=== PATIENT | female | born 2000 | race Caucasian/White ===

== ENCOUNTER 2023-07-28 04:30 | Outpatient (CLI) | payer OTHER, SELFPAY ==
[2023-07-28 13:33] LABS: Bilirubin Negative (Negative); Blood Negative (Negative); Clarity Clear (Clear); Glucose Negative (Negative); Ketones Negative (Negative); Leukocyte Esterase Negative (Negative); Nitrite Negative (Negative); Urobilinogen 0.2 mg/dL (Up to 0.2)
[2023-07-28 14:12] LABS: ALT 28 U/L (14-59); AST 19 U/L (15-37); Albumin 3.9 g/dL (3.4-5.0); Alkaline Phosphatase 134 U/L (46-116); Anion Gap 9.7 mmol/L (3-11); BUN 10 mg/dL (7-18); Bilirubin, Total 0.4 mg/dL (0.2-1.0); CO2 25.3 mmol/L (21.0-32.0); CREATININE 0.8 mg/dL (0.55-1.02); Calcium 9.6 mg/dL (8.5-10.1); Calculated LDL 179 mg/dL (<100); Chloride 101 mmol/L (98-107); Cholesterol 249 mg/dL (<200); Estimated GFR 105.45 (mL/min/1.73m2); Glucose 94 mg/dL (74-106); HDL Cholesterol 47 mg/dL (40-60); Potassium 3.4 mmol/L (3.5-5.1); Sodium 136 mmol/L (136-145); TSH (W/Ref FT4) 2.12 uIU/mL (0.36-3.74); Total Protein 7.9 g/dL (6.4-8.2); Triglyceride 116 mg/dL (<150)
== END 2023-07-28 04:31 | disposition home or self-care (01) ==
LOC: LBO 04:30
PROVIDERS: PCP Nurse Practitioner Family; Visit Provider Nurse Practitioner Family
DX: Z76.89 Persons encountering health services in other specified circumstances (principal); R35.0 Frequency of micturition
CPT/HCPCS: 36415; 80053; 80061; 81003; 83036; 84443

== ENCOUNTER 2023-09-19 21:50 | Outpatient (REF) | payer OTHER, SELFPAY ==
--- OUTSIDE RECORDS SUMMARY | 2023-09-19 21:54 | XMS_ITS | Continuity of Care Document ---
Author Name Unknown Organization [facility] Address [address] [place] [id number] Care Team Providers Care Manager Culinary Name Role Phone Evelio Ford DO Primary Care Physician Encounter [facility] NBR [id number] Date(s): 03/19/23 - 03/19/[address] [address]- Encounter Diagnosis Other chronic pain(Discharge Diagnosis) - 03/19/23 Pelvic and perineal pain(Final) - Discharge Disposition: Home or Self Care Attending Physician: Ivet Elkins PA-C Admitting Physician: Ivet Elkins PA-C Allergies, Adverse Reactions, Alerts No Known Medication Allergies Assessment and Plan Future Scheduled Tests Radiology* US Pelvic Ltd 08/08/22 Immunizations Given and Recorded Vaccine Date Status Refusal Reason influenza virus vaccine, inactivated 08/22/22 Give n SARS-CoV-2 (COVID-19) mRNA BNT-162b2 vax 06/18/22 Recorded SARS-CoV-2 (COVID-19) mRNA BNT-162b2 vax 1 06/18/22 Recorded 1Result Comment: 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 Medications !-Lybrel 0 Refill(s) Start Date: 08/16/22 Status: Ordered buPROPion 150 mg/24 hours (XL) oral tablet, extended release 150 mg 1 tab, Oral, every 24 hr, # 30 tab, 11 Refill(s), Pharmacy: [facility] Start Date: 08/22/22 Status: Ordered doxycycline hyclate 100 mg oral capsule 100 mg = 1 cap, Oral, BID, # 14 cap, 0 Refill(s) Start Date: 01/29/23 Stop Date: 02/05/23 Status: Ordered ketorolac 10 mg oral tablet 10 mg = 1 tab, Oral, QID, PRN as needed for pain, not to exceed 40 mg/day and 5 days duration for all dose forms, # 20 tab, 0 Refill(s), Pharmacy: [facility] Start Date: 03/19/23 Status: Ordered levonorgestrel-ethinyl estradiol oral tablet 1 tab, Oral, Daily, # 91 tab, 3 Refill(s), Pharmacy: [facility] Start Date: 11/15/22 Stop Date: 11/14/23 Status: Ordered Lo-Zumandimine 3 mg-0.02 mg oral tablet 0 Refill(s) Start Date: 01/29/23 Status: Ordered multivitamin adult, oral tablet 1 tab, Oral, Daily, # 90 tab, 0 Refill(s) Start Date: 08/16/22 Status: Ordered sertraline 100 mg oral tablet 100 mg = 1 tab, Oral, Daily, # 90 tab, 2 Refill(s), Pharmacy: [facility] Start Date: 10/10/22 Status: Ordered sertraline 25 mg oral tablet 1 Unknown, 0 Refill(s) Start Date: 08/16/22 Status: Ordered Vitamin D3 1000 intl units oral capsule 25 mcg = 1 cap, Oral, Daily, # 100 cap, 0 Refill(s) Start Date: 08/16/22 Status: Ordered Problem List Condition Confirmation Course Effective Dates Status H ealth Status Informant Allergic rhinitis Confirmed Active Anxiety Confirmed Active Attention deficit hyperactivity disorder Confirmed Active Dysmenorrhea Confirmed Active Furuncles Confirmed Active History of lump of right breast Confirmed Active History of major depression Confirmed Active History of recurrent ear infection 1 Confirmed Active History of pyelonephritis Confirmed Active Hidradenitis suppurativa Confirmed Active History of UTI Confirmed Active Intermenstrual bleeding - irregular Confirmed Active Dyspareunia in female Confirmed Active Pelvic pain in female 2 Confirmed Active Patient encounter status Confirmed Active RLQ abdominal pain Confirmed Active 1As a child. 2more prominent on right. Procedures Procedure Date Related Diagnosis Body Site Status Tympanostomy Completed Results Laboratory List Name Date Automated Diff 03/19/23 Basic Metabolic Panel 03/19/23 CBC w/ Diff 03/19/23 Urinalysis Dipstick Only 03/19/23 Most recent to oldest [Reference Range]: 1 WBC [4.8-10.8 K/mcL] 9.9 K/mcL (03/19/23 3:14 PM) RBC [4.20-5.40 Million/mcL] 4.92 Million /mcL (03/19/23 3:14 PM) Neutro Auto [42.2-75.2 %] 67.2 % (03/19/23 3:14 PM) Lymph Auto [20.5-51.1 %] 25.1 % (03/19/23 3:14 PM) Dewey Auto [1.7-9.3 %] 5.5 % (03/19/23 3:14 PM) Basophil Auto [0.0-0.8 %] 0.5 % (03/19/23 3:14 PM) BUN [8-26 mg/dL] 9 mg/dL (03/19/23 3:14 PM) UA Color [Yellow] Yellow (03/19/23 3:14 PM) Glucose Level [74-106 mg/dL] 89 mg/dL (03/19/23 3:14 PM) Potassium Level [3.5-5.1 mmol/L] 3.6 mmo l/L (03/19/23 3:14 PM) Baso Absolute [0.0-0.2 K/mcL] 0.0 K/mcL (03/19/23 3:14 PM) MCV [81.0-99.0 fL] 86.2 fL (03/19/23 3:14 PM) UA Urobilinogen [0.2] 0.2 (03/19/23 3:14 PM) UA Bili [Negative] Negative (03/19/23 3:14 PM) UA Ketones [Negative] Negative (03/19/23 3:14 PM) MCHC [32.0-36.0 g/dL] 32.8 g/dL (03/19/23 3:14 PM) Osmolality [275-295 mOsm/kg] 278 mOsm/kg (03/19/23 3:14 PM) Sodium Level [134-143 mmol/L] 140 mmol/L (03/19/23 3:14 PM) UA Leuk Est [Negative] Negative (03/19/23 3:14 PM) Lymph Absolute [1.2-3.4 K/mcL] 2.5 K/mcL (03/19/23 3:14 PM) UA Nitrite [Negative] Negative (03/19/23 3:14 PM) UA Glucose [Negative] Negative (03/19/23 3:14 PM) Hct [37.0-47.0 %] 42.4 % (03/19/23 3:14 PM) Calcium Level [8.9-10.3 mg/dL] 9.8 mg/dL (03/19/23 3:14 PM) Dewey Absolute [0.1-0.6 K/mcL] 0.5 K/mcL (03/19/23 3:14 PM) UA Protein [Negative] Negative (03/19/23 3:14 PM) MCH [27.0-31.0 pg] 28.3 pg (03/19/23 3:14 PM) Neutro Absolute [1.4-6.5 K/mcL] 6.7 K/mc L *HI* (03/19/23 3:14 PM) Hgb [12.0-16.0 g/dL] 13.9 g/dL (03/19/23 3:14 PM) UA Blood [Negative] Negative (03/19/23 3:14 PM) MPV [7.4-10.4 fL] 8.6 fL (03/19/23 3:14 PM) UA Spec Grav 1.010 *NA* (03/19/23 3:14 PM) Platelets [130-400 K/mcL] 367 K/mcL (03/19/23 3:14 PM) CO2 [22-32 mmol/L] 28 mmol/L (03/19/23 3:14 PM) Eos Absolute [0.0-0.2 K/mcL] 0.1 K/mcL (03/19/23 3:14 PM) UA pH 5.50 *NA* (03/19/23 3:14 PM) UA Appear [Clear] Clear (03/19/23 3:14 PM) Chloride Level [98-111 mmol/L] 102 mmol/ L (03/19/23 3:14 PM) RDW-CV [11.5-14.5 %] 12.7 % (03/19/23 3:14 PM) BUN/Creat Ratio [8.0-20.0] 12.3 (03/19/23 3:14 PM) Imm Gran Absolute 0.06 *NA* (03/19/23 3:14 PM) Imm Gran Auto [0.0-0.5 %] 0.6 % *HI* (03/19/23 3:14 PM) Slide Review Not Indicated (03/19/23 3:14 PM) Urine Srce Clean Catch (03/19/23 3:14 PM) Creatinine Level [0.44-1.00 mg/dL] 0.73 mg/dL (03/19/23 3:14 PM) Anion Gap [3.0-12.0] 10.0 (03/19/23 3:14 PM) Eos, Auto [0.00-3.00 %] 1.10 % (03/19/23 3:14 PM) eGFR CKD-EPI [>=60 mL/min/1.73 m2] 118 m L/min/1.73 m2 (03/19/23 3:14 PM) Social History Social History Type Response Tobacco Former tobacco user Tobacco Use:. Sex Patient Care team information Care Team Personnel Name: Evelio Ford DO Position: Physician Member Role: Primary Care Physician Address: Address: [address] [place] [id number] [place] Care Team Related Persons Name: MINDY VÁSQUEZ Address: Home [address] [facility] [place], [place] [id number]
--- OUTSIDE RECORDS SUMMARY | 2023-09-19 21:54 | XMS_ITS | Continuity of Care Document ---
Author Name Unknown Organization [facility] Address [address] [place] [phone] Care Team Providers Care Terrazzo Helper Name Role Phone Kiesha Muñoz MD Primary Care Physician Encounter [facility] NBR [id number] Date(s): 08/08/22 - 08/08/[address] [address] [place] Discharge Disposition: Home or Self Care Attending Physician: Moo Patel Admitting Physician: Moo Patel Referring Physician: Moo Patel Assessment and Plan Future Appointments Future Scheduled Tests Radiology* US Pelvic Ltd 08/08/22 Results Radiology Reports * Exam Date Time Procedure Performing Provider Status 08/08/22 1:59 PM US Pelvic Complete Saqib Flores (Verified) Notes: (US Pelvic Complete) Reason For Exam: r10.2 US Pelvic Complete PROCEDURE INFORMATION: Exam: US Pelvis Complete, Transabdominal and US Pelvis, Transvaginal Exam date and time: 08/08/2022 1:10 PM Age: 21 years old Clinical indication: Pelvic pain; Additional info: R10.2 TECHNIQUE: Imaging protocol: Real-time complete transabdominal and transvaginal pelvic ultrasound with image documentation. Transvaginal imaging was used for better evaluation of the endometrium, adnexa, and/or cervix. COMPARISON: No relevant prior studies available. FINDINGS: Uterus: Uterus measures 5.3 x 2.1 x 3.4 cm, and is within normal limits in appearance. Endometrial stripe is normal in thickness, measuring 3.6 mm. Right ovary/adnexa: Right ovary measures 2.9 x 1.2 x 1.4 cm, and is within normal limits in appearance. Flow seen in the right ovary on color imaging, with no evidence of torsion. Left ovary/adnexa: Left ovary measures 2.0 x 1.7 x 1.7 cm, and is within normal limits in appearance. Flow seen in the left ovary on color imaging, with no evidence of torsion. Intraperitoneal space: No free fluid. Urinary bladder: Within normal limits in appearance. IMPRESSION: 1. No significant abnormality of the uterus or ovaries identified. 2. See above for a full description of findings. THIS DOCUMENT HAS BEEN ELECTRONICALLY SIGNED BY BOB PAT MD on 08/08/2022 05:47 PM Final Signed by: Bob Pat MD Signed (Electronic Signature): 08/08/2022 5:47 pm US Pelvis * Bob Pat MD: VERIFY, VERIFY Event Display: Report PROCEDURE INFORMATION: Exam: US Pelvis Complete, Transabdominal and US Pelvis, Transvaginal Exam date and time: 08/08/2022 1:10 PM Age: 21 years old Clinical indication: Pelvic pain; Additional info: R10.2 TECHNIQUE: Imaging protocol: Real-time complete transabdominal and transvaginal pelvic ultrasound with image documentation. Transvaginal imaging was used for better evaluation of the endometrium, adnexa, and/or cervix. COMPARISON: No relevant prior studies available. FINDINGS: Uterus: Uterus measures 5.3 x 2.1 x 3.4 cm, and is within normal limits in appearance. Endometrial stripe is normal in thickness, measuring 3.6 mm. Right ovary/adnexa: Right ovary measures 2.9 x 1.2 x 1.4 cm, and is within normal limits in appearance. Flow seen in the right ovary on color imaging, with no evidence of torsion. Left ovary/adnexa: Left ovary measures 2.0 x 1.7 x 1.7 cm, and is within normal limits in appearance. Flow seen in the left ovary on color imaging, with no evidence of torsion. Intraperitoneal space: No free fluid. Urinary bladder: Within normal limits in appearance. IMPRESSION: 1. No significant abnormality of the uterus or ovaries identified. 2. See above for a full description of findings. THIS DOCUMENT HAS BEEN ELECTRONICALLY SIGNED BY BOB PAT MD on 08/08/2022 05:47 PM Final Signed by: Bob Pat MD Signed (Electronic Signature): 08/08/2022 5:47 pm Patient Care team information Personnel Name: Kiesha Muñoz MD Address: Address: [address] [place] [id number]
--- OUTSIDE RECORDS SUMMARY | 2023-09-19 21:54 | XMS_ITS | Continuity of Care Document ---
Author Name Unknown Organization [facility] Ambulatory Clinics Address [address] [place] [address] Care Team Providers Care Library Associate Name Role Phone Kiesha Muñoz MD Primary Care Physician Encounter [facility] NBR [id number] Date(s): 01/29/23 - 01/29/23 [facility] Ambulatory Clin[facility] [address] [place], [place] [id number] Encounter Diagnosis Respiratory illness(Discharge Diagnosis) - 01/29/23 Discharge Disposition: Home or Self Care Attending Physician: Ben Carrillo. 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 !-Lybrel 0 Refill(s) Start Date: 08/16/22 Status: Ordered buPROPion 150 mg/24 hours (XL) oral tablet, extended release 150 mg 1 tab, Oral, every 24 hr, # 30 tab, 11 Refill(s), Pharmacy: [facility] Start Date: 08/22/22 Status: Ordered doxycycline hyclate 100 mg oral capsule 100 mg = 1 cap, Oral, BID, # 14 cap, 0 Refill(s) Start Date: 01/29/23 Stop Date: 02/05/23 Status: Ordered levonorgestrel-ethinyl estradiol oral tablet 1 tab, Oral, Daily, # 91 tab, 3 Refill(s), Pharmacy: [facility] Start Date: 11/15/22 Stop Date: 11/14/23 Status: Ordered Lo-Zumandimine 3 mg-0.02 mg oral tablet 0 Refill(s) Start Date: 01/29/23 Status: Ordered multivitamin adult, oral tablet 1 tab, Oral, Daily, # 90 tab, 0 Refill(s) Start Date: 08/16/22 Status: Ordered sertraline 100 mg oral tablet 100 mg = 1 tab, Oral, Daily, # 90 tab, 2 Refill(s), Pharmacy: [facility] Start Date: 10/10/22 Status: Ordered sertraline [...] Tympanostomy Completed Results Laboratory List Name Date SARS-CoV-2 (Covid-19) AG (Ayanna) POCT 01/29/23 Most recent to oldest [Reference Range]: 1 SARS-CoV or CoV-2 (COVID-19) Ag (Ayanna) [Negative] Negative (01/29/23 1:37 PM) Employed in healthcare? Unknown *NA* (01/29/23 1:37 PM) Symptomatic as defined by CDC? Unknown *NA* (01/29/23 1:37 PM) Date of onset (Lab) Unknown *NA* (01/29/23 1:37 PM) Hospitalized due to COVID-19? Unknown *NA* (01/29/23 1:37 PM) In ICU? Unknown *NA* (01/29/23 1:37 PM) Group care resident? Unknown *NA* (01/29/23 1:37 PM) status? Unknown *NA* (01/29/23 1:37 PM) Vital Signs Most recent to oldest [Reference Range]: 1 Peripheral Pulse Rate [60-100 bpm] 98 bp m (01/29/23 2:03 PM) Blood Pressure [90-140/60-90 mmHg] 142/8 1mmHg *HI* (01/29/23 2:03 PM) Weight 68.04 kg (01/29/23 2:03 PM) Weight Measured (lbs) 150.002 lb (01/29/23 2:03 PM) Height 158.75 cm (01/29/23 2:03 PM) Height/Length Measured (inches) 62.5 inc h (01/29/23 2:03 PM) BSA Measured 1.73 m2 (01/29/23 2:03 PM) Body Mass Index 27 kg/m2 (01/29/23 2:03 PM) Social History Social History Type Response Tobacco Former tobacco user Tobacco Use:. Sex Physician Outpatient Note * Ben Carrillo. PA: PERFORM Event Display: Office Clinic Note Physician Authored Date: [id number] CHAUDHRYJAMA :2000 Age:22 years Sex:Female Visit Date:01/29/2023 Primary Care Physician: Kiesha Muñoz MD Chief Complaint pt reports cough, sore throat, chest pain, body aches, fatigue symptoms started friday History of Present Illness Patient started 2 days ago with sore throat now with body aches??cough congestion??hoarse voice. ??No runny nose. ??Has felt chilled. ??No fever. ??Tmax 99. ??Significant other recently diagnosed with pneumonia.?? No known COVID contacts.?? No??nausea, vomiting, diarrhea.?? Has felt more fatigued la tely. ??No hemoptysis.?? Denies any abdominal pain.?? Chest tightness with coughing. Physical Exam Vitals & Measurements HR:??98??(Peripheral)?? BP:??142/81?? SpO2:??100%?? HT:??158.75??cm?? WT:??68.04??kg?? BMI:??27?? Pain Score:??4?? BSA:??1.73?? General: Alert and oriented, well nourished, no acute distress. Eye:??Pupils are reactive, conjunctiva clear. HENT: Normocephalic, clear tympanic membranes, throat clear no exudate and uvula is midline Neck: Supple, non-tender, no lymphadenopathy Lungs: Clear to auscultation and percussion, non-labored respiration. Heart: Normal rate, regular rhythm, no murmur, gallop or edema. Abdomen: Soft, non-tender, non-distended, no masses, no CVA tenderness. Musculoskeletal: Normal range of motion and strength, no tenderness or swelling. Skin: Skin is warm, dry, no rashes or lesions in examined areas. Neurologic: Awake, alert and oriented X3, normal cognition and interaction. Psychiatric: Cooperative, appropriate mood and affect. Assessment/Plan 1.??Respiratory illness??J98.9 Rapid flu was negative. ??Given her exposure to pneumonia.?? I reviewed treatment options includingstarting antibiotics, chest x-ray, delay prescribing. ??At this time due to cost she would like to avoid chest x-ray, she will do delay prescribing. ??If improving tomorrow or the next day we will hold off on antibiotics otherwise could start antibiotics if worse or not improving. ??The patient wasagreeable with this.?? Shared decision making done. ??She is aware of the risk benefits and alternatives. Ordered: doxycycline hyclate 100 mg oral capsule, 100 mg = 1 cap, Oral, BID, # 14 cap, 0 Refill(s) Influenza A/B Clinic POC (RE), 01/29/23 14:48:00 EDT, Respiratory illness, 01/29/23 14:48:00 EDT ?? Patient Instructions Start antibiotic in the next 1 to 2 days if you are worsening. ??Otherwise if you are improving continue symptomatic care.?? Emergency department for any shortness of breath or difficulty breathing. ??Follow-up as needed. Problem List/Past Medical History Ongoing Allergic rhinitis Anxiety Attention deficit hyperactivity disorder Dysmenorrhea Dyspareunia in female Furuncles Hidradenitis suppurativa History of lump of right breast History of major depression History of pyelonephritis History of recurrent ear infection History of UTI Intermenstrual bleeding - irregular Patient encounter status Pelvic pain in female RLQ abdominal pain Historical No qualifying data Procedure/Surgical History ???Tympanostomy Medications !-Lybrel buPROPion 150 mg/24 hours (XL) oral tablet, extended release, 150 mg= 1 tab, Oral, every 24 hr, 11 refills doxycycline hyclate 100 mg oral capsule, 100 mg= 1 cap, Oral, BID levonorgestrel-ethinyl estradiol oral tablet, 1 tab, Oral, Daily, 3 refills Lo-Zumandimine 3 mg-0.02 mg oral tablet multivitamin adult, oral tablet, 1 tab, Oral, Daily sertraline 100 mg oral tablet, 100 mg= 1 tab, Oral, Daily, 2 refills sertraline 25 mg oral tablet Vitamin D3 1000 intl units oral capsule, 25 mcg= 1 cap, Oral, Daily Allergies No Known Medication Allergies Social History Alcohol Never Electronic Cigarette/Vaping Electronic Cigarette Use: Never. Tobacco Former tobacco user Tobacco Use:. Family History ADHD - Attention deficit disorder with hyperactivity: Sister. Anxiety: Mother. Cancer: Mother and Grandmother (M). Heart disease: Grandfather (M). Hypertension: Grandfather (M). Immunizations Vaccine Date Status influenza virus vaccine, inactivated - Not Given Comments : Expectation Not Necessary Duplicate order.. patient recieved flu vaccine today. 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 VIKTORIA: PERFORM Event Display: Ambulatory Patient Summary Authored Date: [id number] JAMA CHAUDHRY :2000 Age:22 years Sex:Female Visit Date:01/29/2023 Primary Care Physician: Kiesha Muñoz MD Ambulatory Visit Instructions We would like to thank you for allowing us to assist you with your healthcare needs. The following includes patient education materials and information regarding your injury/illness. Your Next Steps Instructions From Your Care Team Start antibiotic in the next 1 to 2 days if you are worsening. ??Otherwise if you are improving continue symptomatic care.?? Emergency department for any shortness of breath or difficulty breathing. ??Follow-up as needed. Medications What How Much When Why Instructions New doxycycline (doxycycline hyclate 100 mg oral capsule) 1 Capsules Oral (given by mouth) 2 times a day Respiratory illness Duration: 7 Days Printed Prescription Unchanged buPROPion (buPROPion 150 mg/ 24 hours (XL) oral tablet, extended release) 1 tab Oral (given by mouth) Every 24 hours Anxiety Attention deficit hyperactivity disorder Unchanged cholecalciferol (Vitamin D3 1000 intl units oral capsule) 1 Capsules Oral (given by mouth) Every day Unchanged drospirenone-ethinyl estradiol (Lo-Zumandimine 3 mg-0.02 mg oral tablet) Unchanged levonorgestrel-ethinyl estradiol (!-Lybrel) Unchanged levonorgestrel-ethinyl estradiol (levonorgestrel-ethinyl estradiol oral tablet) 1 tab Oral (given by mouth) Every day Duration: 91 Days Unchanged multivitamin (multivitamin adult, oral tablet) 1 tab Oral (given by mouth) Every day Unchanged sertraline (sertraline 100 mg oral tablet) 1 tab Oral (given by mouth) Every day Unchanged sertraline (sertraline 25 mg oral tablet) 1 Unknown ?? Your Summary Your Diagnosis Respiratory illness Problems Ongoing - Any problem that you are currently receiving treatment for. Allergic rhinitis Anxiety Attention deficit hyperactivity disorder Dysmenorrhea Dyspareunia in female Furuncles Hidradenitis suppurativa History of lump of right breast History of major depression History of pyelonephritis History of recurrent ear infection History of UTI Intermenstrual bleeding - irregular Patient encounter status Pelvic pain in female RLQ abdominal pain Outstanding Tests SARS-CoV-2 (Covid-19) AG (Ayanna) POCT Tests Performed Test Name Test Result Date/Time SARS-CoV or CoV-2 (COVID-19) Ag (Ayanna) Negative 01/29/2023 13:37 EDT Your Care Team Attending Physician - Ben Carrillo. PA Primary Care Physician - Kiesha Muñoz MD Discharge Vitals Heart Rate??(Peripheral) 98 Blood Pressure?? 142/81?? Height?? 62.50 in (158.75 cm) Weight?? 150.03 lb (68.04 kg) BMI?? 27 Allergies No Known Medication Allergies Electronically Signed on: 01/29/2023 14:50 EDTSigned by:BT Patient Care team information Care Team Personnel Name: Kiesha Muñoz MD Position: Physician Member Role: Primary Care Physician Address: Address: [address] [place] [phone] Care Team Related Persons Name: MINDY VÁSQUEZ Address: Home [address] [place] [phone]
--- OUTSIDE RECORDS SUMMARY | 2023-09-19 21:54 | XMS_ITS | Continuity of Care Document ---
Author Name Unknown Organization [facility] Address [address] [place] [address] Care Team Providers Care Fbi Field Agent Name Role Phone Unavailable, Physician Primary Care Physician Un available Encounter [facility] NBR [id number] Date(s): 04/09/23 - 04/09/[address] [id number] [phone] Encounter Diagnosis Encounter for other specified special examinations(Final) - Discharge Disposition: Home or Self Care Attending Physician: Unavailable, Physician Admitting Physician: Unavailable, Physician Allergies, Adverse Reactions, Alerts No Known Medication Allergies Assessment and Plan Future Scheduled Tests Radiology* US Pelvic Ltd 08/08/22 Immunizations Given and Recorded Vaccine Date Status Refusal Reason influenza virus vaccine, inactivated 08/22/22 Give n SARS-CoV-2 (COVID-19) mRNA BNT-162b2 vax 06/18/22 Recorded SARS-CoV-2 (COVID-19) mRNA BNT-162b2 vax 1 06/18/22 Recorded 1Result Comment: Unit: Unknown 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 Medications !-Lybrel 0 Refill(s) Start Date: 08/16/22 Status: Ordered buPROPion 150 mg/24 hours (XL) oral tablet, extended release 150 mg 1 tab, Oral, every 24 hr, # 30 tab, 11 Refill(s), Pharmacy: [facility] Start Date: 08/22/22 Status: Ordered [...] forms, # 20 tab, 0 Refill(s), Pharmacy: [facility] Start Date: 03/19/23 Status: Ordered levonorgestrel-ethinyl estradiol oral tablet 1 tab, Oral, Daily, # 91 tab, 3 Refill(s), Pharmacy: [facility] Start Date: 11/15/22 Stop Date: 11/14/23 Status: Ordered Lo-Zumandimine 3 mg-0.02 mg oral tablet 0 Refill(s) Start Date: 01/29/23 Status: Ordered multivitamin adult, oral tablet 1 tab, Oral, Daily, # 90 tab, 0 Refill(s) Start Date: 08/16/22 Status: Ordered sertraline 100 mg oral tablet 100 mg = 1 tab, Oral, Daily, # 90 tab, 2 Refill(s), Pharmacy: [facility] Start Date: 10/10/22 Status: Ordered [...] Tympanostomy Completed Results Laboratory List Name Date CBC w/ Diff 04/09/23 Automated Diff 04/09/23 Most recent to oldest [Reference Range]: 1 WBC [4.8-10.8 K/mcL] 9.8 K/mcL (04/09/23 12:18 PM) RBC [4.20-5.40 Million/mcL] 4.76 Million /mcL (04/09/23 12:18 PM) Neutro Auto [42.2-75.2 %] 67.7 % (6/14/23 12:18 PM) Lymph Auto [20.5-51.1 %] 24.9 % (04/09/23 12:18 PM) Gray Auto [1.7-9.3 %] 4.2 % (04/09/23 12:18 PM) Basophil Auto [0.0-0.8 %] 0.5 % (04/09/23 12:18 PM) Baso Absolute [0.0-0.2 K/mcL] 0.0 K/mcL (04/09/23 12:18 PM) MCV [81.0-99.0 fL] 86.8 fL (04/09/23:18 PM) MCHC [32.0-36.0 g/dL] 32.0 g/dL (04/09/23:18 PM) Lymph Absolute [1.2-3.4 K/mcL] 2.4 K/mcL (04/09/23 12:18 PM) Hct [37.0-47.0 %] 41.3 % (04/09/23 12:18 PM) Gray Absolute [0.1-0.6 K/mcL] 0.4 K/mcL (04/09/23 12:18 PM) MCH [27.0-31.0 pg] 27.7 pg (04/09/23:18 PM) Neutro Absolute [1.4-6.5 K/mcL] 6.7 K/mc L *HI* (04/09/23 12:18 PM) Hgb [12.0-16.0 g/dL] 13.2 g/dL (04/09/23 12:18 PM) MPV [7.4-10.4 fL] 8.6 fL (04/09/23 12:18 PM) Platelets [130-400 K/mcL] 380 K/mcL (04/09/23 12:18 PM) Eos Absolute [0.0-0.2 K/mcL] 0.2 K/mcL (04/09/23 12:18 PM) RDW-CV [11.5-14.5 %] 12.7 % (04/09/23 12:18 PM) Imm Gran Absolute 0.06 *NA* (04/09/23:18 PM) Imm Gran Auto [0.0-0.5 %] 0.6 % *HI* (04/09/23 12:18 PM) Slide Review Not Indicated (04/09/23 12:18 PM) Eos, Auto [0.00-3.00 %] 2.10 % (04/09/23 12:18 PM) Social History Social History Type Response Tobacco Former tobacco user Tobacco Use:. Sex Patient Care team information Care Team Personnel Name: Unavailable, Physician Position: No Access Member Role: Primary Care Physician Care Team Related Persons Name: MINDY VÁSQUEZ Address: Home [address] [place] [address] [place], [place] [id number]
--- OUTSIDE RECORDS SUMMARY | 2023-09-19 21:54 | XMS_ITS | Continuity of Care Document ---
Author Name Unknown Organization [facility] Address [address] [place] [address] Care Team Providers Care Scroll Saw Operator Name Role Phone Kiesha Muñoz MD Primary Care Physician [phone] Encounter [facility] NBR [id number] Date(s): 08/22/22 - 08/22/22 [facility] [address] [place], [place] [address] Encounter Diagnosis Attention deficit hyperactivity disorder(Discharge Diagnosis) - 08/22/22 Anxiety(Discharge Diagnosis) - 08/22/22 Need for vaccination(Discharge Diagnosis) - 08/22/22 Flu vaccine need(Discharge Diagnosis) - 08/22/22 Discharge Disposition: Home or Self Care Attending Physician: Kiesha Muñoz MD Allergies, Adverse Reactions, Alerts No Known Medication Allergies Assessment and Plan Future Appointments Future Scheduled Tests Radiology* US Pelvic Ltd 08/08/22 Functional Status 08/22/22 Other exposure to Infectious Disease Non e Immunizations Given and Recorded Vaccine Date Status Refusal Reason influenza virus vaccine, inactivated 08/22/22 Give n SARS-CoV-2 (COVID-19) mRNA BNT-162b2 vax 06/18/22 Recorded SARS-CoV-2 (COVID-19) mRNA BNT-162b2 vax 1 06/18/22 Recorded 1Result Comment: Unit: Unknown 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 Medications !-Lybrel 0 Refill(s) Start Date: 08/16/22 Status: Ordered buPROPion 150 mg/24 hours (XL) oral tablet, extended release 150 mg 1 tab, Oral, every 24 hr, # 30 tab, 11 Refill(s), Pharmacy: [facility] Start Date: 08/22/22 Status: Ordered multivitamin adult, oral tablet 1 tab, Oral, Daily, # 90 tab, 0 Refill(s) Start Date: 08/16/22 Status: Ordered sertraline 25 mg oral tablet 1 Unknown, 0 Refill(s) Start Date: 08/16/22 Status: Ordered sertraline 50 mg oral tablet 50 mg = 1 tab, Oral, Daily, # 90 tab, 4 Refill(s), Pharmacy: [facility] Start Date: 08/22/22 Status: Ordered Vitamin D3 1000 intl units [...] Related Diagnosis Body Site Status Tympanostomy Completed Vital Signs Most recent to oldest [Reference Range]: 1 Peripheral Pulse Rate [60-100 bpm] 97 bp m (08/22/22 12:36 PM) Blood Pressure [90-140/60-90 mmHg] 128/8 0mmHg (08/22/22 12:36 PM) Weight 64.6 kg (08/22/22 12:36 PM) Weight Measured (lbs) 142.418 lb (08/22/22 12:36 PM) [place] Body Weight Calculated 51.25 kg (08/22/22 12:36 PM) Height 158.75 cm (08/22/22 12:36 PM) Height/Length Measured (inches) 62.5 inc h (08/22/22 12:36 PM) BSA Measured 1.69 m2 (08/22/22 12:36 PM) Body Mass Index 25.63 kg/m2 (08/22/22 12:36 PM) Social History Social History Type Response Tobacco Former tobacco user Tobacco Use:. Sex Patient Care team information Personnel Name: Kiesha Muñoz MD Address: Address: [address] [place] [address]
--- OUTSIDE RECORDS SUMMARY | 2023-09-19 21:54 | XMS_ITS | Continuity of Care Document ---
Author Name Unknown Organization [facility] Address [address] [place] [address] Care Team Providers Care Spacer Type Bar And Segment Name Role Phone Evelio Ford DO Primary Care Physician [phone] Encounter [facility] NBR [id number] Date(s): 03/19/23 - 03/19/23 [facility] [address] [place] [address]- Encounter Diagnosis Chronic pelvic pain in female(Discharge Diagnosis) - 03/19/23 Other chronic pain(Discharge Diagnosis) - 03/19/23 Nausea(Discharge Diagnosis) - 03/19/23 Discharge Disposition: Home or Self Care Attending Physician: Ivet Elkins PA-C Allergies, Adverse Reactions, Alerts No Known Medication Allergies Assessment and Plan Future Scheduled Tests Radiology* US Pelvic Ltd 08/08/22 Functional Status 03/19/23 Other exposure to Infectious Disease Non e Immunizations Given and Recorded Vaccine Date Status Refusal Reason influenza virus vaccine, inactivated 08/22/22 Give n SARS-CoV-2 (COVID-19) mRNA BNT-162b2 vax 06/18/22 Recorded SARS-CoV-2 (COVID-19) mRNA BNT-162b2 vax 1 06/18/22 Recorded 1Result Comment: Unit: Unknown [employer] 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 Medications !-Lybrel 0 Refill(s) Start Date: 08/16/22 Status: Ordered buPROPion 150 mg/24 hours (XL) oral tablet, extended release 150 mg 1 tab, Oral, every 24 hr, # 30 tab, 11 Refill(s), Pharmacy: [facility] Start Date: 08/22/22 Status: [...] forms, # 20 tab, 0 Refill(s), Pharmacy: [facility] Start Date: 03/19/23 Status: Ordered levonorgestrel-ethinyl estradiol oral tablet 1 tab, Oral, Daily, # 91 tab, 3 Refill(s), Pharmacy: [facility] Start Date: 11/15/22 Stop Date: 11/14/23 Status: Ordered Lo-Zumandimine 3 mg-0.02 mg oral tablet 0 Refill(s) Start Date: 01/29/23 Status: Ordered multivitamin adult, oral tablet 1 tab, Oral, Daily, # 90 tab, 0 Refill(s) Start Date: 08/16/22 Status: Ordered sertraline 100 mg oral tablet 100 mg = 1 tab, Oral, Daily, # 90 tab, 2 Refill(s), Pharmacy: [facility] Start Date: 10/10/22 Status: [...] Most recent to oldest [Reference Range]: 1 Temperature Tympanic [36.6-37.9 Deg C] 3 7.1 Deg C (03/19/23 2:35 PM) Peripheral Pulse Rate [60-100 bpm] 114 b pm *HI* (03/19/23 2:35 PM) Respiratory Rate [12-24 br/min] 16 br/mi n (03/19/23 2:35 PM) Blood Pressure [90-140/60-90 mmHg] 144/8 8mmHg *HI* (03/19/23 2:35 PM) Social History Social History Type Response Tobacco Former tobacco user Tobacco Use:. Sex Physician Outpatient Note * Ivet Elkins PA-C: PERFORM Event Display: Office Clinic Note Physician Authored Date: [id number] JAMA CHAUDHRY :2000 Age:22 years Sex:Female Visit Date:03/19/2023 Primary Care Physician: Evelio Ford DO Chief Complaint pevlis pain and leg numbness as well as nausous. pt symptoms that she has today, started yesterday.pt has see court bailiff at [facility] and has been referred for surgery History of Present Illness Patient is a 22-year-old female??with several year history of chronic pelvic pain??that presents tothe urgent care office today??with several day history of increased pain in the anterior pelvis that has been radiating??down her legs with an associated ??cold sensation.?? No low back pain, numbness or tingling sensation??or weakness. ??No fever, perhaps she has had chills but attributed this due to the pain.?? She has had??daily nausea,??1 episode of vomiting this week. ??She is also been having intermittent??right-sided flank pain. ??No urinary symptoms, such as burning, frequency or urgency. ??No hematuria.?? She sees??[facility]??who recently discontinued her??oral contraceptive??and referred her to??another [facility] KNITTER surgeon, the appointment is in 2 days. ??Diagnosis is clinical endometriosis. ??She has had multiple transvaginal ultrasounds which have all been negative.?She has never been in the past. ??She has not been taking anything [id number] for symptom management.?? No prior abdominal pelvic surgeries. Physical Exam Vitals & Measurements T:??37.1?C ??(Tympanic)?? HR:??114??(Peripheral)?? RR:??16?? BP:??144/88?? SpO2:??100%?? Pain Score:??10?? She is well-appearing and in no acute distress, pleasant, reliable historian, accompanied by her??boyfriend.?? Ambulating normally. Nondiaphoretic. ??No skin rash. Heart rate elevated at 100. ??No audible murmurs. Lung sounds are clear in all lobes, no wheezing rales or rhonchi. Generalized tenderness of the??suprapubic region??and bilateral??lower abdomen??without any rigidity, rebound or guarding.?? No obvious ascites.?? Normal active bowel sounds.?? No CVA tenderness. Medical Decision Making: Pelvic pain: Acute exacerbation of her chronic pelvic pain, clinical diagnosis of endometriosis, appt in 2 days with [facility]TER surgical consult for laparoscopic exploratory surgery vs hysterectomy. UA normal. Negative hcG. CBC, BMP grossly normal without any??leukocytosis, electrolyte abnormality or??JOHN. ??She was given IM Toradol here in the office with a 5-day??oral course.?She may continue to use Tylenol 500 mg every 4 hours.?? She will follow-up with the??[facility] K[facility]TER??surgical consult??in 2 days for evaluation. ??She is agreeable with this plan.?? Return precautions provided. ??She declined discharge instructions. Assessment/Plan 1.??Chronic pelvic pain in female??R10.2 Ordered: ketorolac 10 mg oral tablet, 10 mg = 1 tab, Oral, QID, PRN as needed for pain, not to exceed 40 mg/day and 5 days duration for all dose forms, # 20 tab, 0 Refill(s), Pharmacy: [facility] HCG, Urine POC, 03/19/23 15:03:00 EDT, Chronic pelvic pain in female, 03/19/23 15:03:00 EDT ?? 2.??Nausea??R11.0 ?? Other chronic pain??G89.29 ?? Medications and Immunizations This Visit Given ketorolac, 30 mg, IM. For: Chronic pelvic pain in female Problem List/Past Medical History Ongoing Allergic rhinitis [...] capsule, 100 mg= 1 cap, Oral, BID ketorolac 10 mg oral tablet, 10 mg= 1 tab, Oral, QID, PRN levonorgestrel-ethinyl estradiol oral tablet, 1 tab, Oral, [...] vax 06/18/2022 Recorded Comments : Unit: Unknown [employer] 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 Electronically Signed on 03/19/23 04:03 PM Severo HEATH, Ivet Patient Care team information Care Team Personnel Name: Evelio Ford DO Position: Physician Member Role: Primary Care Physician Address: Address: [address] [place] [id number] Care Team Related Persons Name: MINDY VÁSQUEZ Address: [address] [phone]
== END 2023-09-19 21:51 | disposition home or self-care (01) ==
LOC: LBN 21:50
PROVIDERS: PCP Nurse Practitioner Family; Visit Provider Nurse Practitioner Family
DX: J02.9 Acute pharyngitis, unspecified (principal)
CPT/HCPCS: 87070

== ENCOUNTER 2025-03-25 00:52 | Outpatient (CLI) | payer MEDICAID, SELFPAY ==
[2025-03-25 17:12] LABS: Panorama Kit Sent via Fed Ex
[2025-03-25 17:20] LABS: Absolute Basophil Count 0.03 10^3/uL (0.0-0.2); Absolute Eosinophil Count 0.14 10^3/uL (0.0-0.7); Absolute Lymphocyte Count 2.44 10^3/uL (1.2-3.4); Absolute Monocyte Count 0.58 10^3/uL (0.1-0.8); Absolute Neutrophil Count 9.55 10^3/uL (1.2-6.7); Basophils % 0.2 %; Eosinophils % 1.1 %; HCT 37.2 % (36.0-46.0); HGB 12.4 g/dL (11.2-15.7); Immature Grans % 0.8 %; MCH 28.1 pg (27.0-33.0); MCHC 33.3 % (32.0-36.0); MCV 84 fL (80-95); MPV 9.1 fL (8.0-11.0); Monocytes % 4.5 %; Neutrophils % 74.4 %; Platelet Count 329 10^3/uL (130-400); RBC 4.41 10^6/uL (3.93-5.22); RDW 13.1 % (11.7-14.6); RDW-SD 40.2 fL; WBC 12.84 10^3/uL (4.4-10.8)
[2025-03-25 17:35] LABS: Hemoglobin A1C 5.1 % (<5.7)
[2025-03-27 09:20] LABS: HIV-1/2 Ag & Ab Screen Negative (Negative)
[2025-03-28 11:09] LABS: Rubella IgG Ab (UVM) Negative (See Note); Varicella IgG Antibody Negative (See Note)
[2025-03-28 12:02] LABS: Hepatitis B Surface Ag Negative (Negative)
[2025-03-28 12:55] LABS: Hepatitis C Ab w Rflx HCV PCR Negative (Negative)
[2025-03-29 15:06] LABS: Syphilis IgG w/Reflex Nonreactive (Nonreactive)
[2025-04-14 01:43] LABS: Result Summary NEGATIVE; Specimen WB Whole Blood
== END 2025-03-25 00:53 | disposition home or self-care (01) ==
LOC: LBO 00:52
PROVIDERS: Advanced Practice Midwife; PCP Nurse Practitioner Family; Visit Provider Advanced Practice Midwife
DX: Z34.91 Encounter for supervision of normal pregnancy, unspecified, first trimester (principal)
CPT/HCPCS: 36415; 81220; 81222; 86787; 86803; 86850; 86900; 86901; 87340; 87389; 83036; 85025; 86762; 86780

== ENCOUNTER 2025-03-25 17:13 | Outpatient (REF) | payer MEDICAID, SELFPAY ==
--- NOTE | 2025-03-25 15:30 | PAPFT_PTH ---
PATIENT: Julito Patel LOC: [facility] U#:[id number] AGE/SX: 24/F ROOM: RE03/25/[address]: Madeline Cantu CNM : 2000 BED: DIS: 03/25/2025 SPEC #: [id number] RECD: 03/25/25 17:32 STATUS: ZAK REJillian #: [id number] STEVIE: 03/25/25 15:[address]: Madeline Cantu DEPT: [facility] Cytology RECD BY: Leena Blunt ENTERED: 03/25/25 17:33 SP TYPE: PAPFT OTHR DR: Rajni Keen, PUBLICITY AGENT Tissues: 1 - CX/ENDOCX FOR PAP SMEARS Procedures: PAP THIN PREP/UVM Screening HPV DNA PROBE Comments: [id number] (HPV 16 & 18/45) (CHLAMYDIA/GC)
[2025-03-28 12:00] LABS: Chlamydia Result Negative (Negative); GC Result Negative (Negative)
== END 2025-03-25 17:14 | disposition home or self-care (01) ==
LOC: LBN 17:13
PROVIDERS: PCP Nurse Practitioner Family; Visit Provider Advanced Practice Midwife
DX: O26.892 Other specified pregnancy related conditions, second trimester (principal); N89.8 Other specified noninflammatory disorders of vagina; Z3A.12 12 weeks gestation of pregnancy; Z11.51 Encounter for screening for human papillomavirus (HPV)
CPT/HCPCS: 87491; 87591; 88142; 87086; 87480; 87510; 87624; 87660

== ENCOUNTER 2025-04-22 00:49 | Outpatient (CLI) | payer MEDICAID, SELFPAY ==
[2025-04-27 12:47] LABS: AFP 57.4 ng/mL; Calculated age at EDD 27 years; Cigarette smoking status non-Smoker; GA used in risk estimate Scan estimate; IVF Pregnancy No; Initial or repeat testing Initial testing; Insulin dependent diabetes No; Maternal Weight 158 lbs; Number of Fetuses 1; Prev Pregnancy w/NTD No
[2025-04-30 10:51] LABS: 25-Hydroxy D Total 45 ng/mL; 25-Hydroxy D2 <4.0 ng/mL; 25-Hydroxy D3 45 ng/mL
[2025-05-04 15:25] LABS: RECOMMENDED FOLLOW UP None.; Results Summary Normal risk
== END 2025-04-22 00:50 | disposition home or self-care (01) ==
LOC: LBO 00:49
PROVIDERS: PCP Nurse Practitioner Family; Visit Provider Advanced Practice Midwife
DX: Z34.91 Encounter for supervision of normal pregnancy, unspecified, first trimester (principal); R53.83 Other fatigue
CPT/HCPCS: 36415; 82306; 82105

== ENCOUNTER 2025-05-13 00:20 | Outpatient (CLI) | payer BC, MEDICAID, SELFPAY ==
--- NOTE | 2025-05-13 06:45 | DI.US_ITS ---
Exam(s) US OB 2-3 TRIMESTER EXAM: US OB 2-3 TRIMESTER CLINICAL HISTORY: anatomy at 19 wks,Z34.90. TECHNIQUE: Transabdominal obstetrical ultrasound was performed. COMPARISON: No exams were available for comparison FINDINGS: There is a single viable intrauterine gestation with cardiac activity identified-150 bpm. Amniotic fluid: There is a normal amount of amniotic fluid. Placental location: The placenta is posterior grade 0. There is a concerning finding in the lower aspect of the placenta which measures 4 x 3.8 x 3.2cm and appears as a circumscribed solid vascular mass in the lower aspect the placenta which approaches the region of the internal cervical os (0.7 cm from the internal cervical os) ANATOMY: A 3 vessel umbilical cord is seen. A four-chamber cardiac view was obtained. Right and left ventricular outflow tracts were imaged. There are no obvious abnormalities of the spinal column evident. There is no obvious abnormality of the anterior abdominal wall. stomach and urinary bladder are identified and there is no evidence of hydronephrosis. No abnormalities of the upper lip region are identified. No evidence of choroid plexus cysts in the brain. Dating parameters place this at approximately 18 weeks and 5 days gestational age. BPD measures 18 weeks and 6 days HC measures 19 weeks and 0 days AC measures 18 weeks and 5 days FL measures weeks and 0 days Estimated weight is 240 gm-0 pounds, 8 ounces) Fetus is at the 36th percentile on the Hadlock scale. IMPRESSION:: Single viable intrauterine gestation which is approximately 18 weeks and 5 days gestational age, implying an TUYET of 10/09/2025. There are no obvious anomalies evident on today's study. However, there is a well-defined complex vascular appearing mass intimately associated with the lower aspect of the placenta next to region adjacent to the internal cervical os. This may be a chorioangioma. Close follow-up recommended. There is a normal amount of amniotic fluid. DATA REPOSITORY:
== END 2025-05-13 00:40 ==
PROVIDERS: PCP Nurse Practitioner Family; Visit Provider Advanced Practice Midwife
DX: Z34.92 Encounter for supervision of normal pregnancy, unspecified, second trimester (principal); Z3A.19 19 weeks gestation of pregnancy
CPT/HCPCS: 76805

== ENCOUNTER 2025-07-04 07:38 | Outpatient (CLI) | payer BC, MEDICAID, SELFPAY ==
--- NOTE | 2025-07-04 06:51 | DI.US_ITS ---
Exam(s) US OB AMANDA WEIGHT EXAM: US OB AMANDA WEIGHT CLINICAL HISTORY: interval growth @ 28 wks,hypertension,z34.90,i10. TECHNIQUE: Transabdominal obstetrical ultrasound performed. COMPARISON: US US OB 2-3 TRIMESTER from 05/13/2025 FINDINGS:: Number of fetuses: 1 position: Cephalic Placental location: Posterior no evidence of previa. BIOMETRIC DATA: BPD: 66 mm, 26+ 5 weeks HC: 244 mm, 26+ 3 weeks AC: 220 mm, 26+ 3 leaks FL: 49 mm, 26+ 2 weeks EFW: 934 grams, 37 percentile, Composite Age: 26+ 3 weeks TUYET: 07 October 2025 Heart Rate: 146 Amniotic fluid index: 16.2 cm. Visually, amount of fluid is within normal limits. IMPRESSION: size and weight are within the expected range. DATA REPOSITORY:
== END 2025-07-04 07:58 ==
LOC: DI 07-05 07:38
PROVIDERS: PCP Nurse Practitioner Family; Visit Provider Advanced Practice Midwife
DX: I10 Essential (primary) hypertension (principal); Z34.93 Encounter for supervision of normal pregnancy, unspecified, third trimester; Z3A.28 28 weeks gestation of pregnancy
CPT/HCPCS: 76816

== ENCOUNTER 2025-07-04 14:48 | Outpatient (CLI) | payer BC, MEDICAID, SELFPAY ==
--- NOTE | 2025-07-04 14:45 | RT.EKG_ITS ---
APPROVED REPORT Exam: Resting ECG Reason for Exam: baseline reading Patient Location: O HR:111 bpm ECG Measurements Heart Rate 111 AXIS NC 145 P 59 QRSd 82 QRS 59 QT 326 T 21 QTc 443 Conclusion Sinus tachycardia...rate> 99 Normal Electrocardiogram
== END 2025-07-04 14:49 | disposition home or self-care (01) ==
PROVIDERS: PCP Nurse Practitioner Family; Visit Provider Advanced Practice Midwife
DX: I10 Essential (primary) hypertension (principal); Z34.92 Encounter for supervision of normal pregnancy, unspecified, second trimester; Z3A.23 23 weeks gestation of pregnancy
CPT/HCPCS: 93005; 93010

== ENCOUNTER 2025-07-08 03:15 | Outpatient (CLI) | payer BC, MEDICAID, SELFPAY ==
[2025-07-08 16:56] LABS: HCT 36.8 % (36.0-46.0); HGB 12.1 g/dL (11.2-15.7); MCH 28.4 pg (27.0-33.0); MCHC 32.9 % (32.0-36.0); MCV 86 fL (80-95); MPV 9.1 fL (8.0-11.0); Platelet Count 275 10^3/uL (130-400); RBC 4.26 10^6/uL (3.93-5.22); RDW 13.1 % (11.7-14.6); RDW-SD 40.2 fL; WBC 11.37 10^3/uL (4.4-10.8)
[2025-07-08 17:06] LABS: Glucose,1 Hr (Glucola) 139 mg/dL (80-140)
== END 2025-07-08 03:16 | disposition home or self-care (01) ==
LOC: LBO 03:20
PROVIDERS: PCP Nurse Practitioner Family; Visit Provider Advanced Practice Midwife
DX: Z34.92 Encounter for supervision of normal pregnancy, unspecified, second trimester (principal)
CPT/HCPCS: 36415; 82950; 85027

== ENCOUNTER 2025-07-14 04:25 | Outpatient (CLI) | payer BC, MEDICAID, SELFPAY ==
[2025-07-14 08:51] LABS: Glucose 1 Hour 189 mg/dL
== END 2025-07-14 04:26 | disposition home or self-care (01) ==
LOC: LBO 04:25
PROVIDERS: PCP Nurse Practitioner Family; Visit Provider Advanced Practice Midwife
DX: Z34.92 Encounter for supervision of normal pregnancy, unspecified, second trimester (principal)
CPT/HCPCS: 36415; 82951

== ENCOUNTER 2025-08-04 04:30 | Outpatient (CLI) | payer BC, MEDICAID, SELFPAY ==
--- NOTE | 2025-08-04 13:30 | DI.US_ITS ---
Exam(s) US OB AMANDA WEIGHT EXAM: US OB AMANDA WEIGHT CLINICAL HISTORY: ,hypertension,z34.90,i10. TECHNIQUE: Transabdominal obstetrical ultrasound was performed. COMPARISON: US US OB AMANDA WEIGHT from 07/04/2025 FINDINGS: There is a single viable intrauterine gestation with cardiac activity identified-145 bpm The fetus is presently in cephalic position . Amniotic fluid: There is a normal amount of amniotic fluid with an AMANDA of 13.3cm. Placental location: The placenta is posterior grade 2,with no evidence of placenta previa. Dating parameters place this at approximately 31 weeks and 1 day gestational age, implying TUYET of 10/05/2025. BPD measures 31 weeks and 5 days HC measures 31 weeks and 4 days AC measures 30 weeks and 2 days FL measures 30 weeks and 5 days Estimated weight is 1618 gm-3 pounds 9 ounces Fetus is at the 32nd percentile on the Hadlock scale. IMPRESSION:: Viable 3rd trimester gestation, as described above. DATA REPOSITORY:
== END 2025-08-04 04:50 ==
LOC: DI 04:31
PROVIDERS: PCP Nurse Practitioner Family; Visit Provider Advanced Practice Midwife
DX: I10 Essential (primary) hypertension (principal); Z34.93 Encounter for supervision of normal pregnancy, unspecified, third trimester
CPT/HCPCS: 76816

== ENCOUNTER 2025-08-15 04:02 | Outpatient (CLI) | payer BC, MEDICAID, SELFPAY ==
--- NOTE | 2025-08-15 12:40 | W.NUTRFU ---
Date of service: 08/15/25 Time of Service: 12:00 Nutrition Note NOTE: Julito preferred nutrition visit via telephone today. First and new experience with getting recent dx of gestational diabetes. Asked her about glucose data and she states it has been over a month since she was diagnosed and ordered for glucometer but states wrong strips and still waiting/communicating to get it sorted out. I suggested she continue trying to get the one ordered but if within her budget can check out [employer] as a glucometer with 50 test strips can be purchased for <$20. She states she mostly sticks to 3 meals per day - eats bkfst and lunch alone and dinner with boyfriend most days. She has changes what she eats lately - aiming for salads instead of sandwiches at lunch and adds HC egg, cottage cheese to it for protein. Breakfast is usually just steel cut oats, which I applauded as a less processed option and is a high protein grain choice but encouraged to add more to this breakfast and use serving or two of oats with some berries, nuts/seeds and maybe some whey protein mixed in or addional lean protein on the side. Estimated her macro targets to be about 1900kcals, 190g total cho, 142g protein and 63g total fat - will send these in an email along with other suggested targets we discussed today (30g or less of added sugar, 30g or more of fiber) in an email and she can try copying and pasting into meal planning AI resources. Encouraged at least 3 g of fiber per serving in grain products. Also reviewed the tablespoon of maple syrup she reports adding daily to oats counts for 12 g of her 30g of added sugar and suggested she cut back to minimal amount needed for palatability. Encouraged activity/exercise as tolerated or recommended by provider. Encouraged glucose logging LORENA to get a better idea of her profile and if additional measures need to be taken for better mgt. She has my number and email address to communicate any further needs or get questions answered. Time Spent in Nutritional Counseling and Treatment: 25 min
== END 2025-08-15 04:03 | disposition home or self-care (01) ==
LOC: DS 04:02
PROVIDERS: PCP Nurse Practitioner Family; Visit Provider Dietitian, Registered
DX: O24.410 Gestational diabetes mellitus in pregnancy, diet controlled (principal); Z3A.33 33 weeks gestation of pregnancy
CPT/HCPCS: 00123; 97802

== ENCOUNTER 2025-08-18 15:22 | Outpatient (CLI) | payer BC, MEDICAID, SELFPAY ==
[2025-08-18 16:00] VITALS: BP 128/73; PULSE 94; TEMP 36.9
[2025-08-18 16:10] VITALS: BP 128/73; PULSE 94
--- NOTE | 2025-08-18 16:30 | W.OBNST ---
Date of service: 08/18/25 Time of Service: 16:30 NST Evaluation Reason for NST Reasons for Nonstress Test: GDM-DIET CONTROLLED and CHRONIC HYPERTENSION Gestational Age Gestational Age in Weeks and Days: 32 Weeks and 6Days Test and Monitor Explained Test/Monitor Explained: Test Explained, Monitor Explained and Patient Verbalized Understanding Vital Signs Blood Pressure: 128/73 Pulse: 94 Temperature: 98.4 F Urine Results Urine Protein: Negative Urine Ketones: Negative Urine Glucose: Negative Urine Blood: Negative NST Information Date on Monitor: 08/18/25 Time on Monitor: 15:36 Date off Monitor: 08/18/25 Time off Monitor: 16:09 Total Time on Monitor: 33 NST Interventions: None Contraction Frequency: None NST Evaluation Patient States Movement: Present FHR Baseline: 135 Variability: Moderate 6-25 bpm Accelerations: 15x15 Decelerations: None NST Results: Reactive Note Ultrasound Done: N/A. NST Note Note: Weekly NST due to Stage 1 hypertension and GDM, Return to center in 1 week. NST Reviewed and Verified by: Vickie Garcia
[2025-08-18 16:31] VITALS: BP 128/73; PULSE 94; TEMP 36.9
== END 2025-08-18 16:17 ==
LOC: BCD 15:23 → OBS 15:40
PROVIDERS: PCP Nurse Practitioner Family; Visit Provider Advanced Practice Midwife
DX: O24.410 Gestational diabetes mellitus in pregnancy, diet controlled (principal); Z3A.32 32 weeks gestation of pregnancy
CPT/HCPCS: 59025

== ENCOUNTER 2025-08-23 09:59 | Outpatient (CLI) | payer BC, MEDICAID, SELFPAY ==
[2025-08-23 10:14] VITALS: BP 140/87; PULSE 100; TEMP 36.4
--- NOTE | 2025-08-23 11:15 | DI.US_ITS ---
Exam(s) US OB AMANDA WEIGHT EXAM: US OB AMANDA WEIGHT CLINICAL HISTORY: third trimester bleeding. TECHNIQUE: Transabdominal obstetrical ultrasound was performed. COMPARISON: US US OB AMANDA WEIGHT from 08/04/2025 FINDINGS: There is a single viable intrauterine gestation with cardiac activity identified-144 bpm The fetus is presently in cephalic position . Amniotic fluid: There is a normal amount of amniotic fluid with an AMANDA of 15.6cm. Placental location: The placenta is posterior grade 2,with no evidence of placenta previa.Distance from the tip of the placenta to the internal cervical os is 5 cm. No obvious abruption. Dating parameters place this at approximately 33 weeks and 4 days gestational age, implying TUYET of 10/07/2025. BPD measures 34 weeks and 2 days HC measures 34 weeks and 1 day AC measures 32 weeks and 4 days FL measures 33 weeks and 0 days Estimated weight is 2089 gm-4 pounds, 10 ounces Fetus is at the 25th percentile on the Hadlock scale. IMPRESSION:: Viable 3rd trimester gestation, as described above. DATA REPOSITORY:
[2025-08-23 11:59] LABS: Glucose Negative (Negative)
[2025-08-23 12:00] LABS: Fetal Fibronectin Positive (Negative)
[2025-08-23 12:09] VITALS: BP 136/80; PULSE 104
--- NOTE | 2025-08-23 16:59 | W.OBNST ---
Date of service: 08/23/25 Time of Service: 16:59 NST Evaluation Reason for NST Reasons for Nonstress Test: OTHER, SEE COMMENT Reason for NST Other: Spotting Gestational Age Gestational Age in Weeks and Days: 33 Weeks and 4Days Test and Monitor Explained Test/Monitor Explained: Test Explained, Monitor Explained and Patient Verbalized Understanding NST Information Date on Monitor: 08/23/25 Time on Monitor: 10:12 Date off Monitor: 08/23/25 Time off Monitor: 11:04 Total Time on Monitor: 52 NST Interventions: PO Hydration NST Evaluation Patient States Movement: Present FHR Baseline: 140 Variability: Moderate 6-25 bpm Accelerations: 15x15 Decelerations: None NST Results: Reactive Note Ultrasound Done: N/A. NST Note Note: Julito experienced one episode of spotting this morning and cramping. uterine irritability noted on external monitor. Sterile spec exam performed. ervix appears beefy red. it was noted to be friable in February when pap was taken. insufficient endocervical cells obtained. FFN was sent and is pos. GBS, chlamydia swabs sent. vaginal pathogen screen sent and is neg. trace of dark brown blod noted in vault. Urine pos for trace ketones only. US for growth and AMANDA and placental assessment was performed and was WNL. SVE shows cervix softening, closed, vertex -2. Julito was observed and ate lunch. Signs of labor were reviewed. A note was written to allow light duty or working from home if possible. pelvic rest x 1 week recommended. She was instructed to call with worsening symptoms or any other episode of bleeding. NST Reviewed and Verified by: Vickie Garcia
[2025-08-24 12:06] LABS: Chlamydia Result Negative (Negative); GC Result Negative (Negative)
== END 2025-08-23 14:41 ==
LOC: BCD 10:16 → OBS 10:21
PROVIDERS: PCP Nurse Practitioner Family; Visit Provider Advanced Practice Midwife
DX: R82.4 Acetonuria (principal); Z3A.33 33 weeks gestation of pregnancy; O26.853 Spotting complicating pregnancy, third trimester
CPT/HCPCS: 76816; 87491; 87591; 59025; 81003; 82731; 87081; 87480; 87510; 87660

== ENCOUNTER 2025-08-29 07:33 | Outpatient (CLI) | payer BC, MEDICAID, SELFPAY ==
[2025-08-29 08:12] VITALS: BP 141/86; PULSE 100; TEMP 37
[2025-08-29 08:14] VITALS: BP 141/86; PULSE 100
[2025-08-29 08:27] VITALS: BP 139/84; PULSE 95
[2025-08-29 18:50] VITALS: BP 141/86; PULSE 100; TEMP 37
--- NOTE | 2025-08-29 18:50 | W.OBNST ---
Date of service: 08/29/25 Time of Service: 08:30 NST Evaluation Reason for NST Reasons for Nonstress Test: GDM-DIET CONTROLLED Gestational Age Gestational Age in Weeks and Days: 34 Weeks and 3Days Test and Monitor Explained Test/Monitor Explained: Test Explained, Monitor Explained and Patient Verbalized Understanding Vital Signs Blood Pressure: 141/86 Pulse: 100 Temperature: 98.6 F Urine Results Urine Protein: Negative Urine Ketones: Negative Urine Glucose: Negative Urine Blood: Negative NST Information Date on Monitor: 08/29/25 Time on Monitor: 08:06 Date off Monitor: 08/29/25 Time off Monitor: 08:30 Total Time on Monitor: 24 NST Interventions: PO Hydration NST Evaluation Patient States Movement: Present FHR Baseline: 140 Variability: Moderate 6-25 bpm Accelerations: 15x15 and 10x10 Decelerations: None NST Results: Reactive Note Ultrasound Done: N/A. NST Note NST Reviewed and Verified by: Phyllis Gibson
== END 2025-08-29 08:30 ==
LOC: BCD 07:46 → OBS 08:10
PROVIDERS: PCP Nurse Practitioner Family; Visit Provider Advanced Practice Midwife
DX: O24.410 Gestational diabetes mellitus in pregnancy, diet controlled (principal); Z3A.34 34 weeks gestation of pregnancy
CPT/HCPCS: 59025

== ENCOUNTER 2025-09-02 07:27 | Outpatient (CLI) | payer BC, MEDICAID, SELFPAY ==
[2025-09-02 15:10] VITALS: BP 130/72; PULSE 104; TEMP 37.2
--- NOTE | 2025-09-02 15:34 | W.OBNST ---
Date of service: 09/02/25 Time of Service: 15:34 NST Evaluation Reason for NST Reasons for Nonstress Test: GESTATIONAL HYPERTENSION Gestational Age Gestational Age in Weeks and Days: 35 Weeks and 0Days Test and Monitor Explained Test/Monitor Explained: Patient Verbalized Understanding Vital Signs Blood Pressure: 130/72 Pulse: 104 Temperature: 99.0 F NST Information Date on Monitor: 09/02/25 Time on Monitor: 15:01 NST Evaluation FHR Baseline: 140 Variability: Moderate 6-25 bpm Note Ultrasound Done: N/A. NST Note Note: Patient presents for NST; reports feeling well. Denies any signs or symptoms of preeclampsia. Blood pressures are appropriate. NST is reactive and reassuring. Blood sugars reviewed; patient has difficult time testing lunches and those are missing for the last 4 days. However, all other values are reasonable outside of an elevated dinner (150 1 hr) on the fifth. Twice weekly NSTs. NST Reviewed and Verified by: Andria Gallegos
[2025-09-02 15:36] VITALS: BP 130/72; PULSE 104; TEMP 37.2
== END 2025-09-02 15:30 ==
LOC: BCD 07:43 → OBS 15:05
PROVIDERS: PCP Nurse Practitioner Family; Visit Provider Advanced Practice Midwife
DX: O13.3 Gestational [pregnancy-induced] hypertension without significant proteinuria, third trimester (principal); Z3A.35 35 weeks gestation of pregnancy
CPT/HCPCS: 59025

== ENCOUNTER 2025-09-05 07:51 | Outpatient (CLI) | payer BC, MEDICAID, SELFPAY ==
[2025-09-05 16:57] VITALS: BP 141/88; PULSE 102; TEMP 36.9
[2025-09-05 16:58] VITALS: BP 141/88; PULSE 102
[2025-09-05 17:34] VITALS: BP 136/79; PULSE 107
[2025-09-05 17:47] LABS: ALT 14 U/L (14-59); AST 14 U/L (15-37); Albumin 2.7 g/dL (3.4-5.0); Alkaline Phosphatase 137 U/L (46-116); Anion Gap 13.1 mmol/L (3-11); BUN 12 mg/dL (7-18); Bilirubin, Total 0.7 mg/dL (0.2-1.0); CO2 21.9 mmol/L (21.0-32.0); Calcium 8.8 mg/dL (8.5-10.1); Chloride 103 mmol/L (98-107); Estimated GFR 139.03 (mL/min/1.73m2); Glucose 76 mg/dL (74-106); Potassium 3.6 mmol/L (3.5-5.1); Sodium 138 mmol/L (136-145); Total Protein 6.6 g/dL (6.4-8.2)
[2025-09-05 17:58] LABS: PROTEIN < 6.0 mg/dL
[2025-09-05 18:38] LABS: HCT 37.6 % (36.0-46.0); HGB 12.5 g/dL (11.2-15.7); MCH 27.9 pg (27.0-33.0); MCHC 33.2 % (32.0-36.0); MCV 84 fL (80-95); MPV 9.8 fL (8.0-11.0); Platelet Count 239 10^3/uL (130-400); RBC 4.48 10^6/uL (3.93-5.22); RDW 13.0 % (11.7-14.6); RDW-SD 39.5 fL; WBC 10.78 10^3/uL (4.4-10.8)
== END 2025-09-05 18:42 ==
LOC: BCD 07:53 → OBS 16:53
PROVIDERS: Obstetrics & Gynecology; PCP Nurse Practitioner Family; Visit Provider Advanced Practice Midwife
DX: O24.410 Gestational diabetes mellitus in pregnancy, diet controlled (principal); Z3A.35 35 weeks gestation of pregnancy
CPT/HCPCS: 80053; 85027; 59025; 82565; 84156

== ENCOUNTER 2025-09-09 07:43 | Outpatient (CLI) | payer BC, MEDICAID, SELFPAY ==
[2025-09-09 15:21] VITALS: BP 133/81; PULSE 99
[2025-09-09 15:23] VITALS: BP 133/81; PULSE 99; TEMP 36.8
[2025-09-09 17:53] VITALS: BP 133/81; PULSE 99; TEMP 36.8
--- NOTE | 2025-09-09 17:53 | W.OBNST ---
Date of service: 09/09/25 Time of Service: 17:53 NST Evaluation Reason for NST Reasons for Nonstress Test: GDM-DIET CONTROLLED Gestational Age Gestational Age in Weeks and Days: 36 Weeks and 0Days Test and Monitor Explained Test/Monitor Explained: Test Explained Vital Signs Blood Pressure: 133/81 Pulse: 99 Temperature: 98.2 F NST Information Date on Monitor: 09/09/25 Time on Monitor: 14:55 Date off Monitor: 09/09/25 NST Interventions: PO Hydration Contraction Frequency: irritability, not felt by pt NST Evaluation Patient States Movement: Present FHR Baseline: 135 Variability: Moderate 6-25 bpm Accelerations: 15x15 Decelerations: None NST Results: Reactive Note Ultrasound Done: N/A. NST Note NST Reviewed and Verified by: Phyllis Gibson
== END 2025-09-09 15:35 ==
LOC: BCD 07:43 → OBS 14:50
PROVIDERS: PCP Nurse Practitioner Family; Visit Provider Advanced Practice Midwife
DX: O24.410 Gestational diabetes mellitus in pregnancy, diet controlled (principal); Z3A.36 36 weeks gestation of pregnancy
CPT/HCPCS: 59025

== ENCOUNTER 2025-09-14 14:32 | Outpatient (CLI) | payer BC, MEDICAID, SELFPAY ==
[2025-09-14 16:42] VITALS: BP 137/78; PULSE 96
[2025-09-14 16:45] VITALS: BP 137/78; PULSE 96; TEMP 37
--- NOTE | 2025-09-14 17:55 | W.OBNST ---
Date of service: 09/14/25 Time of Service: 17:56 NST Evaluation Reason for NST Reasons for Nonstress Test: DECREASED MOVEMENT Gestational Age Gestational Age in Weeks and Days: 36 Weeks and 5Days Test and Monitor Explained Test/Monitor Explained: Test Explained, Monitor Explained and Patient Verbalized Understanding Vital Signs Blood Pressure: 137/78 Pulse: 96 Temperature: 98.6 F Urine Results Urine Protein: Negative Urine Ketones: Negative Urine Glucose: Negative Urine Blood: Negative NST Information Date on Monitor: 09/14/25 Time on Monitor: 16:41 Date off Monitor: 09/14/25 Time off Monitor: 17:15 Total Time on Monitor: 34 NST Interventions: PO Hydration Contraction Frequency: 0 NST Evaluation Patient States Movement: Present FHR Baseline: 135 Variability: Moderate 6-25 bpm Accelerations: 15x15 Decelerations: None NST Results: Reactive Note Ultrasound Done: N/A. NST Note Note: Patient presented for decreased movement. She has category 1, reactive nonstress test. She received Tdap and RSV vaccination while on the center. NST Reviewed and Verified by: Charu Sanderson
[2025-09-14 17:56] VITALS: BP 137/78; PULSE 96; TEMP 37
== END 2025-09-14 17:20 ==
LOC: BCD 14:33 → OBS 16:36
PROVIDERS: PCP Nurse Practitioner Family; Visit Provider Obstetrics & Gynecology
DX: O36.8131 Decreased fetal movements, third trimester, fetus 1 (principal); Z3A.36 36 weeks gestation of pregnancy
CPT/HCPCS: 59025

== ENCOUNTER 2025-09-16 07:32 | Outpatient (CLI) | payer BC, MEDICAID, SELFPAY ==
[2025-09-16 15:14] VITALS: BP 135/78; PULSE 101; TEMP 36.6
[2025-09-16 15:18] VITALS: BP 135/78; PULSE 101
[2025-09-18 21:58] VITALS: BP 135/78; PULSE 101; TEMP 36.6
--- NOTE | 2025-09-18 21:58 | W.OBNST ---
Date of service: 09/16/25 Time of Service: 17:00 NST Evaluation Reason for NST Reasons for Nonstress Test: GDM-DIET CONTROLLED and CHRONIC HYPERTENSION Gestational Age Gestational Age in Weeks and Days: 37 Weeks and 0Days Test and Monitor Explained Test/Monitor Explained: Test Explained Vital Signs Blood Pressure: 135/78 Pulse: 101 Temperature: 97.9 F Urine Results Urine Protein: Negative Urine Ketones: Negative Urine Glucose: Negative Urine Blood: Negative NST Information Date on Monitor: 09/16/25 Time on Monitor: 15:02 Date off Monitor: 09/16/25 NST Interventions: None Contraction Frequency: none NST Evaluation Patient States Movement: Present FHR Baseline: 140 Variability: Moderate 6-25 bpm Accelerations: 15x15 Decelerations: None NST Results: Reactive Note Ultrasound Done: N/A. NST Note NST Reviewed and Verified by: Andria Gallegos
== END 2025-09-16 16:30 ==
LOC: BCD 08:44 → OBS 15:02
PROVIDERS: PCP Nurse Practitioner Family; Visit Provider Obstetrics & Gynecology
DX: O24.410 Gestational diabetes mellitus in pregnancy, diet controlled (principal); O13.3 Gestational [pregnancy-induced] hypertension without significant proteinuria, third trimester; Z3A.37 37 weeks gestation of pregnancy
CPT/HCPCS: 59025

== ENCOUNTER 2025-09-23 06:13 | Inpatient (IN) | payer BC, MEDICAID, SELFPAY ==
--- NOTE | 2025-09-22 10:17 | HPE_ITS ---
Date of service: 09/23/25 Time of Service: 06:00 Assessment and Plan Assessment and plan (1) : Status: Acute Assessment and plan: patient is a 25-year-old primigravida with chronic hypertension and diet- controlled gestational diabetes. Will begin a labor induction with cervical ripening followed up Pitocin augmentation. Pain control as needed. Indication for delivery is chronic hypertension and gestational diabetes. Pediatrics is aware. Will (2) Rubella non-immune status, antepartum: Status: Acute (3) Maternal varicella, non-immune: Status: Acute (4) Gestational diabetes: Status: Acute (5) Stage 1 hypertension: Status: Acute OB-HPI Labor/Delivery History of Present Illness Reason for Visit: induction Chief Complaint: Scheduled Induction of Labor Indication for Induction: Chronic Hypertension and Gestational Diabetes. TUYET Calculator Estimated Delivery Date Method Current WG Current Estimate 10/07/25 LMP (Uncertain) 37w 6d Other Estimates 10/10/25 Ultrasound #1 37w 3d 10/07/25 Conception 37w 6d History of Present Expected Delivery Route/Plan - CNM, to MD @ 34 wks (GDM, ?cHTN) FOB/partner - Ryan Cabrera (first child) BB Rubella & Varicella non-immune, offer vaccines GBS negative @ 33 wks Specific Issues/Plan 1. Prediabetes - early Hgb A1C-5.1 Dietary counseling: reduce sweetened drinks & CHO intake, increase fiber & protein. 1a. At 27 wks [id number]- 3-hr GTT scheduled: 86, 189, 210, 64 = GDM, begin home monitoring. Did not receive correct monitoring supplies until 08/18/25 2. cfDNA low risk male, CF negative, AFP=nml risk of NTD (family hx spina bifida) 3. Hx anxiety, took sertraline x1 yr then stopped. No meds or depression now. 4. Hx endometriosis, s/p laparoscopy 2022 @ [facility] 5. Quit tobacco and marijuana with 6. Low lying placenta with circumcized solid vascular mass in placenta- referred to [facility] for level 2- probable subchorionic bleed and lower uterine synechiae visualized, close follow up advised at [facility] 6a. SCB and lowlying placenta resolved per u/s 06/23/25 @ [facility], edge is 5.8 cm from os 7. [facility] MFM dx'ed stage 1 cHTN, recommended Nifedipine 30mg daily (pt declines), serial growth scans @ 28, 32 & 36 wks, baseline CMP & urine pr/cr, weekly NST's starting at 32 wks, baseline EKG, delivery between 38 & 39 wks. Discussed w/pt, see narrative. 7a. 28 wk EFW/AMANDA=37th%, AMANDA 16, cephalic, posterior placenta. EKG-nml with mild sinus tachy (HR 111) 7b. 31 wk EFW in 32nd%, AMANDA 13 7c. 34 wk EFW/AMANDA 25%ile, AMANDA 15.6 Narrative: Patient is a 25-year-old female primigravida who transitioned her care from our midwifery service to physicians service due to complexity of care. She is going to be 38 weeks 09/16/2025 and will be started on a labor induction course. She has complications of her which include chronic hypertension with relatively stable blood pressures, and insulin requiring gestational diabetes. She had a maternal- medicine consultation and recommended delivery after 38 weeks. She has had serial growth ultrasounds at 28, 31, 34 weeks with baby most recently at the 25th percentile and an appropriate AMANDA. She has been in surveillance with nonstress testing which is appropriate. She had resolution of the low-lying placenta. the risk, benefits, and alternatives of induction of labor which Include but not limited to increased risk of medical procedures, slight increase of , and labor abnormalities were discussed with patient today. Denied of her diagnosis of diabetes, she will have Accu-Cheks every 4 hours. She will have baseline laboratory studies repeated including a CBC and CMP. Monitor her blood pressure and glycemic control appropriately. Pediatrics is aware of labor induction Review of Systems All systems reviewed & are unremarkable except as noted in HPI and below Eyes Eyes: Reports as per HPI and Reports system reviewed and no additional complaints, except as documented ENT Ears, Nose, Mouth, and Throat: Reports system reviewed and no additional complaints, except as documented and Reports as per HPI Cardiovascular Cardiovascular: Reports system reviewed and no additional complaints, except as documented, Denies chest pain and Denies irregular heart rhythm Respiratory Respiratory: Reports system reviewed and no additional complaints, except as documented, Denies chest congestion and Denies cough Gastrointestinal Gastrointestinal: Reports system reviewed and no additional complaints, except as documented Genitourinary Genitourinary: Reports system reviewed and no additional complaints, except as documented Neurologic Neurologic: Reports system reviewed and no additional complaints, except as documented PFSH All Active Problems (Updated 07/14/25 @ 18:14 by Madeline Cantu) Gestational diabetes (Acute) Stage 1 hypertension (Acute) Fatigue (Acute) Maternal varicella, non-immune (Acute) Rubella non-immune status, antepartum (Acute) History of endometriosis (Acute) (Acute) Prediabetes (Chronic) Generalized anxiety disorder (Chronic) Major depressive disorder, recurrent (Chronic) ADHD (Chronic) Dyspareunia in female (Chronic) Medical History (Updated 07/14/25 @ 18:14 by Madeline Cantu) Low lying placenta nos or without hemorrhage, second trimester resolved per ultrasound at [facility] 06/23/25 Former tobacco use Vaginal discharge during Hyperlipidemia Allergic rhinitis Hidradenitis suppurativa Endometriosis Surgical History S/P laparoscopic procedure (~03/2023) Hx of tympanostomy tubes Family History Mother Depression ADHD Father Depression Memory loss Sister ADHD Sister Anxiety Maternal Grandfather Alcohol use disorder Depression Memory loss Hyperlipidemia Maternal Grandmother Hypertension Alcohol use disorder Depression Paternal Grandfather No problems noted. Paternal Grandmother No problems noted. Social History Smoking/Tobacco Use Status: Former Tobacco Use tobacco type: cigarettes Quit Date: 10/27/21 Second Hand Exposure: Yes Smoking risk assessment performed?: Yes Alcohol Intake: current Alcohol Intake frequency: a few times a month Alcohol type: beer Drug use: Never Substance use type: does not use Caregiver/Support person: No Household members: significant other Housing: house Communication Needs: None Do you need help understanding health information?: Never Pets and animals: Yes Pets and animals: dog(s) Sexually active: Yes Do you think of yourself as: straight/heterosexual Current gender identity: female What is your relationship status?: living with partner How often do you talk on the phone with friends or family?: never How often do you get together with friends or relatives?: never How often do you attend zoroastrian or yarsanism services?: decline to answer Do you belong to any clubs or organized social groups?: no Panel score (0-1 are the most socially isolated patients): 1 What type of physical activity do you participate in: none Frequency: does not exercise Maci/Uatsdin: None Special maci needs: No Seatbelt use: always Helmet use: Yes Helmet use: always Drive intox or ride w/intox delivery driver: No History History 1 Para 0 Hx # Term Pregnancies 0 Multiple births 0 Hx # Pregnancies 0 Ectopic pregnancies 0 AB induced 0 Hx Number of Living Children 0 AB spontaneous 0 Meds Allergies and Home Medications Allergies Allergy/AdvReac Type Severity Reaction Status Date / Time No Known Drug Allergies Allergy Unknown Other (See Verified 08/18/25 14:44 Comment) Home Medications ?Medication ?Instructions ?Recorded ?Confirmed ?Type alcohol swabs 1 pad topical QID #100 ea 09/14/25 Rx blood sugar diagnostic (FreeStyle #100 ea 07/19/25 Rx Lite Strips) Held on 08/04/25. Instructions: Changed by Provider blood-glucose meter (FreeStyle #1 ea 07/19/25 09/14/25 Rx Lite Meter kit) Held on 08/04/25. Instructions: Changed by Provider lancets 30 gauge #100 ea 07/19/25 09/14/25 Rx blood sugar diagnostic #100 ea 08/04/25 09/14/25 Rx blood sugar diagnostic (Contour #100 ea 08/04/2509/14 Rx Test Strips) blood-glucose meter (Contour Meter) #1 ea 08/04/25 Rx blood-glucose meter (OneTouch #1 ea 08/04/25 09/14/25 Rx Ultra2 Meter) Held on 08/04/25. Instructions: Changed by Provider lancets #200 ea 08/04/25 09/14/25 Rx vitamins 30 30 mg iron-10 1 cap PO DAILY #90 caps 08/04/25 09/14/25 Rx mg iron-folic acid 1 mg-om3 capsule Exam Detailed Labor and Delivery Exam Rudd Score: Cervical Points Exam 0 1 2 3 Dilation Closed 1-2cm 3-4 cm 5-6cm Effacement 0-30% 40-50% 60-70% 80% Consistency Firm Medium Soft Station -3 -2 -1,0 +1,+2 Position Posterior Mid Anterior Risk Assessment Risk for Shoulder Dystocia Historical/Initial OB: NEGATIVE FOR: Pelvic Abnormality, Pre- BMI>30, Previous Shoulder Dystocia or Previous Macrosomia Risk for Pre-Eclampsia Date Initiated/Initials: not indicated. JK Yes, if one or more: NEGATIVE FOR: Hx Pre-E/Gest HTN, Chronic HTN, Multiple Gestation, Pre-gestational DM, Renal Disease, Systemic Lupus or APA Syndrome Yes, if 2 or more: POSITIVE FOR: Nulliparity; NEGATIVE FOR: Age>= 35 yrs, >10yr btwn pregnancies, BMI>30, ethinicty, Mother/Sister w/ Pre-E or Previous IUGR Risk for Post- Hemorrhage Initial: NEGATIVE FOR: Multiple Gestation, Previous PPH, Known Clotting Deficiency, Grand Multiparity or Anticoagulation Risks Reviewed Risks Reviewed Upon Admission: Yes
[2025-09-23] VITALS (29 sets, daily range): BP systolic 113–140; BP diastolic 55–87; PULSE 0–136; RESP 18; TEMP 36.6–37; O2SAT 96–97
[2025-09-23 08:14] LABS: Abs Immature Grans 0.17 10^3/uL (0.0-0.06); HCT 38.9 % (36.0-46.0); HGB 13.0 g/dL (11.2-15.7); Immature Grans % 1.7 %; MCH 28.1 pg (27.0-33.0); MCHC 33.4 % (32.0-36.0); MCV 84 fL (80-95); MPV 9.2 fL (8.0-11.0); Platelet Count 198 10^3/uL (130-400); RBC 4.63 10^6/uL (3.93-5.22); RDW 13.0 % (11.7-14.6); RDW-SD 39.2 fL; WBC 10.06 10^3/uL (4.4-10.8)
[2025-09-23 08:31] LABS: ALT 9 U/L (10-49); AST 16 U/L (<34); Albumin 3.8 g/dL (3.2-5.0); Alkaline Phosphatase 157 U/L (46-116); Anion Gap 10.3 mmol/L (3-11); BUN 8 mg/dL (9-23); Bilirubin, Total 0.90 mg/dL (0.2-1.2); CO2 20.7 mmol/L (20.0-31.0); Calcium 9.4 mg/dL (8.3-10.6); Chloride 109 mmol/L (98-107); Glucose 98 mg/dL (74-106); Potassium 3.7 mmol/L (3.5-5.1); Sodium 140 mmol/L (136-145); Total Protein 6.6 g/dL (5.7-8.2)
[2025-09-23] MEDS: miSOPROStol 25 MCG TAB VG (08:49)
--- NOTE | 2025-09-23 08:52 | PGE_ITS ---
Date of service: 09/23/25 Time of Service: 08:52 Informed Consent Informed Consent: Induction of Labor and Risk,Benefits,Alternatives Discussed Pelvic Exam Dilation: 0 Effacement (%): 50 station: -2 Cervix Position: posterior Consistency: soft BISHOPS Score(Cervical Ripeness Score): 5 Contractions Monitor Mode: External Contraction Frequency(min): 10 Fetus A Heart Rate Baseline: 145 Presentation: Cephalic Variability: Moderate (6-25 BPM) Categories: Category I FHR Rhythm: Regular Accelerations: 15 X 15 Decelerations: None Amniotic Membrane Status: Intact Assessment and Plan Assessment and plan (1) Encounter for induction of labor: Status: Acute Assessment and plan: Patient is here for labor induction at 38 weeks. She has chronic hypertension, stage I with stable blood pressures on medication currently. Laboratory studies this morning are normal. She has a category 1, nonstress test. She will have cervical ripening initially with misoprostol, possibly with balloon. She will have Pitocin augmentation of labor as needed. She is group B strep negative. Will continue to monitor her blood sugars throughout the course of her . She understands the risks of labor induction, as well as the risk of shoulder dystocia and delivery abnormalities. (2) : Status: Acute (3) Gestational diabetes: Status: Acute (4) Stage 1 hypertension: Status: Acute Objective Abnormal lab results 09/23/25 Range/Units 08:04 Absolute Neutrophils 7.54 H (1.2-6.7) 10^3/uL Chloride 109 H (98-107) mmol/L BUN 8 L (9-23) mg/dL Creatinine 0.49 L (0.55-1.02) mg/dL ALT 9 L (10-49) U/L Alkaline Phosphatase 157 H (46-116) U/L Temp Pulse BP 98.5 F 100 H 140/87 09/23/25 07:30 09/23/25 07:30 09/23/25 07:30 Laboratory Results WBC 10.06 10^3/uL (4.4-10.8) 09/23/25 08:04 RBC 4.63 10^6/uL (3.93-5.22) 09/23/25 08:04 Hgb 13.0 g/dL (11.2-15.7) 09/23/25 08:04 Hct 38.9 % (36.0-46.0) 09/23/25 08:04 MCV 84 fL (80-95) 09/23/25 08:04 MCH 28.1 pg (27.0-33.0) 09/23/25 08:04 MCHC 33.4 % (32.0-36.0) 09/23/25 08:04 RDW 13.0 % (11.7-14.6) 09/23/25 08:04 Plt Count 198 10^3/uL (130-400) 09/23/25 08:04 MPV 9.2 fL (8.0-11.0) 09/23/25 08:04 Immature Gran % 1.7 % 09/23/25 08:04 Neutrophils % 74.9 % 09/23/25 08:04 Lymphocytes % 17.1 % 09/23/25 08:04 Monocytes % 4.5 % 09/23/25 08:04 Eosinophils % 1.2 % 09/23/25 08:04 Basophils % 0.6 % 09/23/25 08:04 Nucleated RBC % 0.0 % (0.0-0.3) 09/23/25 08:04 Absolute Neutrophils 7.54 10^3/uL (1.2-6.7) H 09/23/25 08:04 Absolute Lymphocytes 1.72 10^3/uL (1.2-3.4) 09/23/25 08:04 Absolute Monocytes 0.45 10^3/uL (0.1-0.8) 09/23/25 08:04 Absolute Eosinophils 0.12 10^3/uL (0.0-0.7) 09/23/25 08:04 Absolute Basophils 0.06 10^3/uL (0.0-0.2) 09/23/25 08:04 Sodium 140 mmol/L (136-145) 09/23/25 08:04 Potassium 3.7 mmol/L (3.5-5.1) 09/23/25 08:04 Chloride 109 mmol/L (98-107) H 09/23/25 08:04 Carbon Dioxide 20.7 mmol/L (20.0-31.0) 09/23/25 08:04 Anion Gap 10.3 mmol/L (3-11) 09/23/25 08:04 BUN 8 mg/dL (9-23) L 09/23/25 08:04 Creatinine 0.49 mg/dL (0.55-1.02) L 09/23/25 08:04 Est GFR (CKD-EPI 2020) 151.41 (mL/min/1.73m2) 09/23/25 08:04 Glucose 98 mg/dL (74-106) 09/23/25 08:04 Calcium 9.4 mg/dL (8.3-10.6) 09/23/25 08:04 Total Bilirubin 0.90 mg/dL (0.2-1.2) 09/23/25 08:04 AST 16 U/L (<34) 09/23/25 08:04 ALT 9 U/L (10-49) L 09/23/25 08:04 Alkaline Phosphatase 157 U/L (46-116) H 09/23/25 08:04 Total Protein 6.6 g/dL (5.7-8.2) 09/23/25 08:04 Albumin 3.8 g/dL (3.2-5.0) 09/23/25 08:04 ABO/Rh A Positive 09/23/25 08:04 Antibody Screen NEGATIVE 09/23/25 08:04 Subjective Interval history since last seen: Patient seen and examined. NST and labs reviewed. CBC and CMP are normal. She has a category 1, reactive nonstress test with occasional irregular contractions . Lengthy conversation today regarding her labor induction and modalities. Based on cervical examination, we will start with misoprostol intravaginally and 1 dose of 25 mcg was placed. She may benefit from a Manning balloon if labor is not spontaneous. She understands the risk, benefits, and alternatives. IV has been placed. She is group B strep. She will have blood sugar checks every 4 hours until active labor hourly. She is open to pain control as needed. Results Hemoglobin/Hematocrit: Hgb 13.0 g/dL (11.2-15.7) 09/23/25 08:04 Hct 38.9 % (36.0-46.0) 09/23/25 08:04 Abnormal Lab Findings: Abnormal Labs 09/23/25 08:04 Absolute Neutrophils 7.54 H Chloride 109 H BUN 8 L Creatinine 0.49 L ALT 9 L Alkaline Phosphatase 157 H
[2025-09-23 12:29] LABS: Cannabinoids THC Negative (Negative); Fentanyl Scr w/Rflx to Conf, U Negative (Negative)
--- NOTE | 2025-09-23 13:09 | W.PM.OBNL1 ---
Date of service: 09/23/25 Time of Service: 13:10 Informed Consent Informed Consent: Induction of Labor and Risk,Benefits,Alternatives Discussed Pelvic Exam Dilation: 3 Effacement (%): 80 station: -1 Cervix Position: posterior Consistency: soft Contractions Monitor Mode: External Contraction Frequency(min): 8 Intensity: Moderate/Strong Fetus A Monitor: External (US) Heart Rate Baseline: 140 Presentation: Cephalic Variability: Moderate (6-25 BPM) Accelerations: 15 X 15 Decelerations: None Assessment and Plan Assessment and plan (1) Encounter for induction of labor: Status: Acute Assessment and plan: Labor induction at 38 weeks. Status post 1 dose of misoprostol. Favorable cervix. Will begin Pitocin augmentation. Blood Sugars Are Normal. (2) Gestational diabetes: Status: Acute (3) Stage 1 hypertension: Status: Acute Objective Abnormal lab results 09/23/25 Range/Units 08:04 Absolute Neutrophils 7.54 H (1.2-6.7) 10^3/uL Chloride 109 H (98-107) mmol/L BUN 8 L (9-23) mg/dL Creatinine 0.49 L (0.55-1.02) mg/dL ALT 9 L (10-49) U/L Alkaline Phosphatase 157 H (46-116) U/L Temp Pulse BP 97.9 F 96 H 137/80 09/23/25 12:42 09/23/25 12:42 09/23/25 12:42 Laboratory Results WBC 10.06 10^3/uL (4.4-10.8) 09/23/25 08:04 RBC 4.63 10^6/uL (3.93-5.22) 09/23/25 08:04 Hgb 13.0 g/dL (11.2-15.7) 09/23/25 08:04 Hct 38.9 % (36.0-46.0) 09/23/25 08:04 MCV 84 fL (80-95) 09/23/25 08:04 MCH 28.1 pg (27.0-33.0) 09/23/25 08:04 MCHC 33.4 % (32.0-36.0) 09/23/25 08:04 RDW 13.0 % (11.7-14.6) 09/23/25 08:04 Plt Count 198 10^3/uL (130-400) 09/23/25 08:04 MPV 9.2 fL (8.0-11.0) 09/23/25 08:04 Immature Gran % 1.7 % 09/23/25 08:04 Neutrophils % 74.9 % 09/23/25 08:04 Lymphocytes % 17.1 % 09/23/25 08:04 Monocytes % 4.5 % 09/23/25 08:04 Eosinophils % 1.2 % 09/23/25 08:04 Basophils % 0.6 % 09/23/25 08:04 Nucleated RBC % 0.0 % (0.0-0.3) 09/23/25 08:04 Absolute Neutrophils 7.54 10^3/uL (1.2-6.7) H 09/23/25 08:04 Absolute Lymphocytes 1.72 10^3/uL (1.2-3.4) 09/23/25 08:04 Absolute Monocytes 0.45 10^3/uL (0.1-0.8) 09/23/25 08:04 Absolute Eosinophils 0.12 10^3/uL (0.0-0.7) 09/23/25 08:04 Absolute Basophils 0.06 10^3/uL (0.0-0.2) 09/23/25 08:04 Sodium 140 mmol/L (136-145) 09/23/25 08:04 Potassium 3.7 mmol/L (3.5-5.1) 09/23/25 08:04 Chloride 109 mmol/L (98-107) H 09/23/25 08:04 Carbon Dioxide 20.7 mmol/L (20.0-31.0) 09/23/25 08:04 Anion Gap 10.3 mmol/L (3-11) 09/23/25 08:04 BUN 8 mg/dL (9-23) L 09/23/25 08:04 Creatinine 0.49 mg/dL (0.55-1.02) L 09/23/25 08:04 Est GFR (CKD-EPI 2020) 151.41 (mL/min/1.73m2) 09/23/25 08:04 Glucose 98 mg/dL (74-106) 09/23/25 08:04 Calcium 9.4 mg/dL (8.3-10.6) 09/23/25 08:04 Total Bilirubin 0.90 mg/dL (0.2-1.2) 09/23/25 08:04 AST 16 U/L (<34) 09/23/25 08:04 ALT 9 U/L (10-49) L 09/23/25 08:04 Alkaline Phosphatase 157 U/L (46-116) H 09/23/25 08:04 Total Protein 6.6 g/dL (5.7-8.2) 09/23/25 08:04 Albumin 3.8 g/dL (3.2-5.0) 09/23/25 08:04 Urine Opiates Screen Negative (Negative) 09/23/25 07:05 Urine Methadone Screen Negative (Negative) 09/23/25 07:05 Urine Fentanyl Screen Negative (Negative) 09/23/25 07:05 Ur Barbiturates Screen Negative (Negative) 09/23/25 07:05 Ur Tricyclics Screen Negative (Negative) 09/23/25 07:05 Ur Amphetamines Screen Negative (Negative) 09/23/25 07:05 U Benzodiazepines Scrn Negative (Negative) 09/23/25 07:05 Urine Cocaine Screen Negative (Negative) 09/23/25 07:05 U Cannabinoids Screen Negative (Negative) 09/23/25 07:05 ABO/Rh A Positive 09/23/25 08:04 Antibody Screen NEGATIVE 09/23/25 08:04 Subjective Interval history since last seen: Patient seen status post 1 dose of misoprostol vaginally. Cervix is now 3 cm, 80%, posterior, soft. Will begin Pitocin augmentation. Risks and benefits were discussed. Results Hemoglobin/Hematocrit: Hgb 13.0 g/dL (11.2-15.7) 09/23/25 08:04 Hct 38.9 % (36.0-46.0) 09/23/25 08:04 Abnormal Lab Findings: Abnormal Labs 09/23/25 08:04 Absolute Neutrophils 7.54 H Chloride 109 H BUN 8 L Creatinine 0.49 L ALT 9 L Alkaline Phosphatase 157 H
[2025-09-23] MEDS: Oxytocin/Normal Saline 30 UNIT/500 ML BAG 2 UNITS IV (13:39)
[2025-09-23] MEDS: Normal Saline Flush 10 ML SYR IVP (13:40)
[2025-09-23] MEDS: Lactated Ringers 1,000 ML 125 ML IV (13:40)
--- NOTE | 2025-09-23 15:20 | W.PM.OBNL1 ---
Date of service: 09/23/25 Time of Service: 15:21 Informed Consent Informed Consent: Induction of Labor and Risk,Benefits,Alternatives Discussed Pelvic Exam Dilation: 4 Effacement (%): 100 station: 0 Cervix Position: posterior Consistency: soft Fetus A Monitor: External (US) Heart Rate Baseline: 140 Presentation: Cephalic Variability: Moderate (6-25 BPM) Categories: Category I Assessment and Plan Assessment and plan (1) Encounter for induction of labor: Status: Acute Assessment and plan: Good progress of labor induction. Comfortable with contractions. Pitocin is at 6 milliunits. Good cervical change now 4 cm. Overall doing well. Anticipate vaginal (2) Gestational diabetes: Status: Acute (3) Stage 1 hypertension: Status: Acute Objective Abnormal lab results 09/23/25 Range/Units 08:04 Absolute Neutrophils 7.54 H (1.2-6.7) 10^3/uL Chloride 109 H (98-107) mmol/L BUN 8 L (9-23) mg/dL Creatinine 0.49 L (0.55-1.02) mg/dL ALT 9 L (10-49) U/L Alkaline Phosphatase 157 H (46-116) U/L Temp Pulse BP 97.9 F 97 H 132/87 09/23/25 12:42 09/23/25 15:07 09/23/25 15:07 Laboratory Results WBC 10.06 10^3/uL (4.4-10.8) 09/23/25 08:04 RBC 4.63 10^6/uL (3.93-5.22) 09/23/25 08:04 Hgb 13.0 g/dL (11.2-15.7) 09/23/25 08:04 Hct 38.9 % (36.0-46.0) 09/23/25 08:04 MCV 84 fL (80-95) 09/23/25 08:04 MCH 28.1 pg (27.0-33.0) 09/23/25 08:04 MCHC 33.4 % (32.0-36.0) 09/23/25 08:04 RDW 13.0 % (11.7-14.6) 09/23/25 08:04 Plt Count 198 10^3/uL (130-400) 09/23/25 08:04 MPV 9.2 fL (8.0-11.0) 09/23/25 08:04 Immature Gran % 1.7 % 09/23/25 08:04 Neutrophils % 74.9 % 09/23/25 08:04 Lymphocytes % 17.1 % 09/23/25 08:04 Monocytes % 4.5 % 09/23/25 08:04 Eosinophils % 1.2 % 09/23/25 08:04 Basophils % 0.6 % 09/23/25 08:04 Nucleated RBC % 0.0 % (0.0-0.3) 09/23/25 08:04 Absolute Neutrophils 7.54 10^3/uL (1.2-6.7) H 09/23/25 08:04 Absolute Lymphocytes 1.72 10^3/uL (1.2-3.4) 09/23/25 08:04 Absolute Monocytes 0.45 10^3/uL (0.1-0.8) 09/23/25 08:04 Absolute Eosinophils 0.12 10^3/uL (0.0-0.7) 09/23/25 08:04 Absolute Basophils 0.06 10^3/uL (0.0-0.2) 09/23/25 08:04 Sodium 140 mmol/L (136-145) 09/23/25 08:04 Potassium 3.7 mmol/L (3.5-5.1) 09/23/25 08:04 Chloride 109 mmol/L (98-107) H 09/23/25 08:04 Carbon Dioxide 20.7 mmol/L (20.0-31.0) 09/23/25 08:04 Anion Gap 10.3 mmol/L (3-11) 09/23/25 08:04 BUN 8 mg/dL (9-23) L 09/23/25 08:04 Creatinine 0.49 mg/dL (0.55-1.02) L 09/23/25 08:04 Est GFR (CKD-EPI 2020) 151.41 (mL/min/1.73m2) 09/23/25 08:04 Glucose 98 mg/dL (74-106) 09/23/25 08:04 Calcium 9.4 mg/dL (8.3-10.6) 09/23/25 08:04 Total Bilirubin 0.90 mg/dL (0.2-1.2) 09/23/25 08:04 AST 16 U/L (<34) 09/23/25 08:04 ALT 9 U/L (10-49) L 09/23/25 08:04 Alkaline Phosphatase 157 U/L (46-116) H 09/23/25 08:04 Total Protein 6.6 g/dL (5.7-8.2) 09/23/25 08:04 Albumin 3.8 g/dL (3.2-5.0) 09/23/25 08:04 Urine Opiates Screen Negative (Negative) 09/23/25 07:05 Urine Methadone Screen Negative (Negative) 09/23/25 07:05 Urine Fentanyl Screen Negative (Negative) 09/23/25 07:05 Ur Barbiturates Screen Negative (Negative) 09/23/25 07:05 Ur Tricyclics Screen Negative (Negative) 09/23/25 07:05 Ur Amphetamines Screen Negative (Negative) 09/23/25 07:05 U Benzodiazepines Scrn Negative (Negative) 09/23/25 07:05 Urine Cocaine Screen Negative (Negative) 09/23/25 07:05 U Cannabinoids Screen Negative (Negative) 09/23/25 07:05 ABO/Rh A Positive 09/23/25 08:04 Antibody Screen NEGATIVE 09/23/25 08:04 Subjective Interval history since last seen: Doing well, contractions q 3 minutes Pitocin at 6 Results Hemoglobin/Hematocrit: Hgb 13.0 g/dL (11.2-15.7) 09/23/25 08:04 Hct 38.9 % (36.0-46.0) 09/23/25 08:04 Abnormal Lab Findings: Abnormal Labs 09/23/25 08:04 Absolute Neutrophils 7.54 H Chloride 109 H BUN 8 L Creatinine 0.49 L ALT 9 L Alkaline Phosphatase 157 H
--- NOTE | 2025-09-23 18:42 | W.PM.OBNL1 ---
Date of service: 09/23/25 Time of Service: 18:42 Informed Consent Informed Consent: Induction of Labor and Risk,Benefits,Alternatives Discussed Pelvic Exam Dilation: 5 Effacement (%): 100 station: 0 Cervix Position: mid Consistency: soft Comments: Patient signed out. Fetus A Heart Rate Baseline: 140 Variability: Moderate (6-25 BPM) Categories: Category I FHR Rhythm: Regular Characteristics: Normal Amniotic Membrane Status: Ruptured Rupture Method: Artifical Amniotic Fluid: Clear Date of Membrane Rupture: 09/23/25 Time of Membrane Rupture: 18:43 Assessment and Plan Assessment and plan (1) Encounter for induction of labor: Status: Acute Assessment and plan: Labor induction. 1 dose of misoprostol, though on Pitocin. Artificial rupture membranes for clear fluid. 5 cm, 100%. Patient doing well. Pain control as needed. (2) Gestational diabetes: Status: Acute Assessment and plan: Fingerstick glucose are appropriate (3) Stage 1 hypertension: Status: Acute Assessment and plan: Blood pressure has been stable. Objective Abnormal lab results 09/23/25 Range/Units 08:04 Absolute Neutrophils 7.54 H (1.2-6.7) 10^3/uL Chloride 109 H (98-107) mmol/L BUN 8 L (9-23) mg/dL Creatinine 0.49 L (0.55-1.02) mg/dL ALT 9 L (10-49) U/L Alkaline Phosphatase 157 H (46-116) U/L Temp Pulse BP 98.2 F 96 H 128/79 09/23/25 17:16 09/23/25 17:16 09/23/25 17:16 Laboratory Results WBC 10.06 10^3/uL (4.4-10.8) 09/23/25 08:04 RBC 4.63 10^6/uL (3.93-5.22) 09/23/25 08:04 Hgb 13.0 g/dL (11.2-15.7) 09/23/25 08:04 Hct 38.9 % (36.0-46.0) 09/23/25 08:04 MCV 84 fL (80-95) 09/23/25 08:04 MCH 28.1 pg (27.0-33.0) 09/23/25 08:04 MCHC 33.4 % (32.0-36.0) 09/23/25 08:04 RDW 13.0 % (11.7-14.6) 09/23/25 08:04 Plt Count 198 10^3/uL (130-400) 09/23/25 08:04 MPV 9.2 fL (8.0-11.0) 09/23/25 08:04 Immature Gran % 1.7 % 09/23/25 08:04 Neutrophils % 74.9 % 09/23/25 08:04 Lymphocytes % 17.1 % 09/23/25 08:04 Monocytes % 4.5 % 09/23/25 08:04 Eosinophils % 1.2 % 09/23/25 08:04 Basophils % 0.6 % 09/23/25 08:04 Nucleated RBC % 0.0 % (0.0-0.3) 09/23/25 08:04 Absolute Neutrophils 7.54 10^3/uL (1.2-6.7) H 09/23/25 08:04 Absolute Lymphocytes 1.72 10^3/uL (1.2-3.4) 09/23/25 08:04 Absolute Monocytes 0.45 10^3/uL (0.1-0.8) 09/23/25 08:04 Absolute Eosinophils 0.12 10^3/uL (0.0-0.7) 09/23/25 08:04 Absolute Basophils 0.06 10^3/uL (0.0-0.2) 09/23/25 08:04 Sodium 140 mmol/L (136-145) 09/23/25 08:04 Potassium 3.7 mmol/L (3.5-5.1) 09/23/25 08:04 Chloride 109 mmol/L (98-107) H 09/23/25 08:04 Carbon Dioxide 20.7 mmol/L (20.0-31.0) 09/23/25 08:04 Anion Gap 10.3 mmol/L (3-11) 09/23/25 08:04 BUN 8 mg/dL (9-23) L 09/23/25 08:04 Creatinine 0.49 mg/dL (0.55-1.02) L 09/23/25 08:04 Est GFR (CKD-EPI 2020) 151.41 (mL/min/1.73m2) 09/23/25 08:04 Glucose 98 mg/dL (74-106) 09/23/25 08:04 Calcium 9.4 mg/dL (8.3-10.6) 09/23/25 08:04 Total Bilirubin 0.90 mg/dL (0.2-1.2) 09/23/25 08:04 AST 16 U/L (<34) 09/23/25 08:04 ALT 9 U/L (10-49) L 09/23/25 08:04 Alkaline Phosphatase 157 U/L (46-116) H 09/23/25 08:04 Total Protein 6.6 g/dL (5.7-8.2) 09/23/25 08:04 Albumin 3.8 g/dL (3.2-5.0) 09/23/25 08:04 Urine Opiates Screen Negative (Negative) 09/23/25 07:05 Urine Methadone Screen Negative (Negative) 09/23/25 07:05 Urine Fentanyl Screen Negative (Negative) 09/23/25 07:05 Ur Barbiturates Screen Negative (Negative) 09/23/25 07:05 Ur Tricyclics Screen Negative (Negative) 09/23/25 07:05 Ur Amphetamines Screen Negative (Negative) 09/23/25 07:05 U Benzodiazepines Scrn Negative (Negative) 09/23/25 07:05 Urine Cocaine Screen Negative (Negative) 09/23/25 07:05 U Cannabinoids Screen Negative (Negative) 09/23/25 07:05 ABO/Rh A Positive 09/23/25 08:04 Antibody Screen NEGATIVE 09/23/25 08:04 Subjective Interval history since last seen: Patient seen and examined. Doing well with contractions every 30 minutes. Pitocin 8 milliunits. Category 1 reactive NST. Consented for artificial rupture of membranes. Results Hemoglobin/Hematocrit: Hgb 13.0 g/dL (11.2-15.7) 09/23/25 08:04 Hct 38.9 % (36.0-46.0) 09/23/25 08:04 Abnormal Lab Findings: Abnormal Labs 09/23/25 08:04 Absolute Neutrophils 7.54 H Chloride 109 H BUN 8 L Creatinine 0.49 L ALT 9 L Alkaline Phosphatase 157 H
--- NOTE | 2025-09-23 20:48 | W.PM.OBNL1 ---
Date of service: 09/23/25 Time of Service: 20:48 Informed Consent Informed Consent: Induction of Labor and Risk,Benefits,Alternatives Discussed Pelvic Exam Dilation: 7 Effacement (%): 100 station: 0 Contractions Contraction Frequency(min): 2-3 Contraction Duration(sec): 60 Fetus A Heart Rate Baseline: 150 Categories: Category I Assessment and Plan Assessment and plan (1) Encounter for induction of labor: Status: Acute Assessment and plan: Labor induction. Artificial rupture membranes for clear fluid. Significantly requesting pain control. Anesthesia, notified for epidural placement (2) Gestational diabetes: Status: Acute (3) Stage 1 hypertension: Status: Acute Objective Abnormal lab results 09/23/25 Range/Units 08:04 Absolute Neutrophils 7.54 H (1.2-6.7) 10^3/uL Chloride 109 H (98-107) mmol/L BUN 8 L (9-23) mg/dL Creatinine 0.49 L (0.55-1.02) mg/dL ALT 9 L (10-49) U/L Alkaline Phosphatase 157 H (46-116) U/L Temp Pulse BP 98.2 F 89 132/84 09/23/25 17:16 09/23/25 19:20 09/23/25 19:20 Laboratory Results WBC 10.06 10^3/uL (4.4-10.8) 09/23/25 08:04 RBC 4.63 10^6/uL (3.93-5.22) 09/23/25 08:04 Hgb 13.0 g/dL (11.2-15.7) 09/23/25 08:04 Hct 38.9 % (36.0-46.0) 09/23/25 08:04 MCV 84 fL (80-95) 09/23/25 08:04 MCH 28.1 pg (27.0-33.0) 09/23/25 08:04 MCHC 33.4 % (32.0-36.0) 09/23/25 08:04 RDW 13.0 % (11.7-14.6) 09/23/25 08:04 Plt Count 198 10^3/uL (130-400) 09/23/25 08:04 MPV 9.2 fL (8.0-11.0) 09/23/25 08:04 Immature Gran % 1.7 % 09/23/25 08:04 Neutrophils % 74.9 % 09/23/25 08:04 Lymphocytes % 17.1 % 09/23/25 08:04 Monocytes % 4.5 % 09/23/25 08:04 Eosinophils % 1.2 % 09/23/25 08:04 Basophils % 0.6 % 09/23/25 08:04 Nucleated RBC % 0.0 % (0.0-0.3) 09/23/25 08:04 Absolute Neutrophils 7.54 10^3/uL (1.2-6.7) H 09/23/25 08:04 Absolute Lymphocytes 1.72 10^3/uL (1.2-3.4) 09/23/25 08:04 Absolute Monocytes 0.45 10^3/uL (0.1-0.8) 09/23/25 08:04 Absolute Eosinophils 0.12 10^3/uL (0.0-0.7) 09/23/25 08:04 Absolute Basophils 0.06 10^3/uL (0.0-0.2) 09/23/25 08:04 Sodium 140 mmol/L (136-145) 09/23/25 08:04 Potassium 3.7 mmol/L (3.5-5.1) 09/23/25 08:04 Chloride 109 mmol/L (98-107) H 09/23/25 08:04 Carbon Dioxide 20.7 mmol/L (20.0-31.0) 09/23/25 08:04 Anion Gap 10.3 mmol/L (3-11) 09/23/25 08:04 BUN 8 mg/dL (9-23) L 09/23/25 08:04 Creatinine 0.49 mg/dL (0.55-1.02) L 09/23/25 08:04 Est GFR (CKD-EPI 2020) 151.41 (mL/min/1.73m2) 09/23/25 08:04 Glucose 98 mg/dL (74-106) 09/23/25 08:04 Calcium 9.4 mg/dL (8.3-10.6) 09/23/25 08:04 Total Bilirubin 0.90 mg/dL (0.2-1.2) 09/23/25 08:04 AST 16 U/L (<34) 09/23/25 08:04 ALT 9 U/L (10-49) L 09/23/25 08:04 Alkaline Phosphatase 157 U/L (46-116) H 09/23/25 08:04 Total Protein 6.6 g/dL (5.7-8.2) 09/23/25 08:04 Albumin 3.8 g/dL (3.2-5.0) 09/23/25 08:04 Urine Opiates Screen Negative (Negative) 09/23/25 07:05 Urine Methadone Screen Negative (Negative) 09/23/25 07:05 Urine Fentanyl Screen Negative (Negative) 09/23/25 07:05 Ur Barbiturates Screen Negative (Negative) 09/23/25 07:05 Ur Tricyclics Screen Negative (Negative) 09/23/25 07:05 Ur Amphetamines Screen Negative (Negative) 09/23/25 07:05 U Benzodiazepines Scrn Negative (Negative) 09/23/25 07:05 Urine Cocaine Screen Negative (Negative) 09/23/25 07:05 U Cannabinoids Screen Negative (Negative) 09/23/25 07:05 ABO/Rh A Positive 09/23/25 08:04 Antibody Screen NEGATIVE 09/23/25 08:04 Subjective Interval history since last seen: Patient seen, much more comfortable with contractions, now every 2 to 3 minutes. Category 1 heart rate tracing. Cervix is 7 cm. Patient requesting pain control with epidural. Anesthesia and nursing house moving supervisor notified. Please Results Hemoglobin/Hematocrit: Hgb 13.0 g/dL (11.2-15.7) 09/23/25 08:04 Hct 38.9 % (36.0-46.0) 09/23/25 08:04 Abnormal Lab Findings: Abnormal Labs 09/23/25 08:04 Absolute Neutrophils 7.54 H Chloride 109 H BUN 8 L Creatinine 0.49 L ALT 9 L Alkaline Phosphatase 157 H
[2025-09-23] MEDS: Oxytocin/Normal Saline 30 UNIT/500 ML BAG 334 UNITS IV (21:20)
--- NOTE | 2025-09-23 21:24 | PLAC_PTH ---
PATIENT: Julito Patel LOC: OBS U#:[id number] AGE/SX: 25/F ROOM: OBS.304 RE09/23/[address]: Charu Sanderson DO : 2000 BED: A DIS: 09/25/2025 SPEC #: [id number] RECD: 09/26/25 12:50 STATUS: ZAK REQ #: [id number] STEVIE: 09/23/25 21:[address]: Charu Sanderson DEPT: Surgical Specimen RECD BY: Leena Blunt ENTERED: 09/26/25 12:50 SP TYPE: PLAC OTHR DR: CHAR Cruz Tissues: 1 - PLACENTA (3RD TRIMESTER) Procedures: GROSS AND MICRO LEVEL 5 Comments: [id number]
--- NOTE | 2025-09-23 22:08 | W.OBDELIVERY ---
Date of service: 09/23/25 Time of Service: 22:08 OB Labor/ Delivery Information Baby A Delivery Delivery Method: Spontaneaous Presentation: Cephalic Vertex Position: Right Occipital Anterior Cord Description-Baby A: 3 Vessels Amniotic Fluid: Clear Quantitative Blood Loss: 350 Delivery Outcome: Liveborn Infant Transferred: Remains with Mother Note: Patient was admitted to the presenter at 38 weeks for labor induction due to chronic hypertension, stage I, and gestational diabetes, diet-controlled. The risks, benefits, and alternatives of induction were discussed with the patient previously and informed consent obtained. Initially upon presentation, her cervix was closed though soft and received 1 dose of intravaginal misoprostol, 25 mcg. On subsequent examination she was approximately 2 to 3 cm and Pitocin augmentation was begun. She had a maximum Pitocin dose of 12 milliunits. She had artificial rupture of membranes for clear fluid at 1843. She progressed to the point that she was completely dilated. She used nitrous oxide for pain relief. She pushed over approximately 15 minutes and had delivery of a viable male . There was no evidence of nuchal cord. There was no shoulder dystocia. Baby was delivered to the mom's abdomen. She had delayed cord clamping. Three-vessel cord was noted, clamped x 2 and cut. Placenta delivered spontaneously after obtaining cord blood sample. Inspection of the placenta, there was no evidence of defect. Insertion is somewhat eccentric. Placenta will be sent for examination due to previous ultrasound finding of abnormality. On inspection of her perineum, she has a second-degree midline laceration there was no evidence of cervical. Or vaginal lacerations. The area was infiltrated with 1% lidocaine and repaired in the usual fashion with 3-0 Vicryl. Laceration was noted to be hemostatic and cosmetically appropriate. Uterus is firm and 2 cm below the umbilicus after delivery. She did receive IV Pitocin for uterine tonicity. Both mom and male infant are in stable condition bonding well after delivery. Labor induction due to stage I hypertension and gestational diabetes at 38 weeks Providers Doctor: Charu Sanderson Nurse: Jailyn Smith Nurse: Lena Licona Labor/Delivery Information Number of Babies in Womb: 1 Steroids Given: None Reason Steroids Not Administered: N/A Group Beta Strep: Negative Antibiotics Administered: No Rubella Status: Nonimmune Blood Type: A+ Varicella Immunity: Nonimmune Maternal Complications: None Shoulder Dystocia: No Stages of Labor Onset of Labor Date: 09/23/25 Complete Dilatation Date: 09/23/25 Complete Dilatation Time: 21:06 ROM Baby A: 09/23/25 ROM Baby A: 18:43 Infant Delivery Date-Baby A: 09/23/25 Infant Delivery Time-Baby A: 21:17 Labor Stage 2 Duration: 11 minutes Placenta Delivery Date-Baby A: 09/23/25 Placenta Delivery Time-Baby A: 21:24 Labor-Stage 3 Duration: 7 minutes Placenta Status: Delivered Baby A Gender: Male Gestational Status: Early Term (37-38.6 wks) Gestational Age in Weeks/Days: 38 Weeks and 0 Days Score-1 Minute Interval(Baby A) Heart Rate-1 minute: 100 BPM or Greater Respiratory Effort- 1 minute: Spontaneous/Strong Cry Muscle Tone-1 minute: Active Movement Reflex Response-1 minute: Prompt Response Color-1 minute: Bluish Hands or Feet Total Score-1 minute: 9 Score-5 Minute Interval(Baby A) Heart Rate- 5 minute: 100 BPM or Greater Respiratory Effort-5 minute: Spontaneous/Strong Cry Muscle Tone-5 minute: Active Movement Reflex Response-5 minute: Prompt Response Color-5 minute: Bluish Hands or Feet Total Score- 5 minute: 9
--- NOTE | 2025-09-23 22:41 | W.PM.OBPNV1 ---
Date of service: 09/23/25 Time of Service: 22:41 Exam Physical Exam Vital signs: Temp Pulse BP 98.2 F 106 H 117/63 09/23/25 17:16 09/23/25 22:39 09/23/25 22:39 Vital Signs Reviewed: Yes Narrative: In the room to do debriefing with nursing and patient and . No issues or concerns with delivery or care. Overall doing well. During the debriefing she did say that she was having sensation of a gush of blood. Perineum identified and inspected. Small trickle of blood. Uterus is firm and below the umbilicus. Pads and ice pack weighed for an additional 400 cc. Total qualitative blood loss at this point 750. Discussed with patient and her . If further bleeding, would recommend exam under anesthesia for better pain control. Results Hemoglobin/Hematocrit: Hgb 13.0 g/dL (11.2-15.7) 09/23/25 08:04 Hct 38.9 % (36.0-46.0) 09/23/25 08:04 Abnormal Lab Findings: Abnormal Labs 09/23/25 08:04 Absolute Neutrophils 7.54 H Chloride 109 H BUN 8 L Creatinine 0.49 L ALT 9 L Alkaline Phosphatase 157 H
--- NOTE | 2025-09-23 23:18 | OBPPV_ITS ---
Date of service: 09/23/25 Time of Service: 23:18 Assessment and Plan Assessment and plan (1) hemorrhage: Status: Acute Assessment and plan: Patient has had ongoing bleeding. Qualitative blood loss of 350 cc at the time of delivery +400 cc at the 45-minute jerry, and now an additional 100 cc low still less than qualitative blood loss of less than 1000, concern for ongoing bleeding despite uterotonic's including Pitocin and misoprostol. Patient will go to the OR for exam under anesthesia, repair of any lacerations, uterine curettage. Nursing supervisor finishing room and anesthesia aware. Risks, benefits, and alternatives of surgery including risk of infection, ongoing bleeding, injury to surrounding organs all explained to the patient informed consent obtained. Exam Physical Exam Vital signs: Temp Pulse BP Pulse Ox 98.2 F 107 H 123/63 97 09/23/25 17:16 09/23/25 23:08 09/23/25 23:08 09/23/25 22:58 Vital Signs Reviewed: Yes Notable Details: Mild tachycardia Narrative: Patient has had another 100+ cc of bleeding. Uterus is firm. I do have concern for more extensive vaginal versus cervical laceration, without anesthesia, cannot get a good evaluation. Results Hemoglobin/Hematocrit: Hgb 13.0 g/dL (11.2-15.7) 09/23/25 08:04 Hct 38.9 % (36.0-46.0) 09/23/25 08:04 Abnormal Lab Findings: Abnormal Labs 09/23/25 08:04 Absolute Neutrophils 7.54 H Chloride 109 H BUN 8 L Creatinine 0.49 L ALT 9 L Alkaline Phosphatase 157 H
[2025-09-23] MEDS: ceFAZolin 2,000 MG in Normal Saline 100 ML 200 MG IVPB (23:47)
[2025-09-24] VITALS (18 sets, daily range): BP systolic 117–132; BP diastolic 57–82; PULSE 76–111; RESP 11–17; TEMP 36.4–37.1; O2SAT 94–99; BMI 35.1
--- NOTE | 2025-09-24 00:02 | ANES.PREOP_ITS ---
General Info Date of Service Date Performed: 09/24/25 Height: 5 ft 1 in Weight: 84.368 kg Body Mass Index (BMI): 35.1 Surgical Procedure: Operation Date: 09/23/25 11:45 Proposed Procedure Side Surgeon p Dilation & Curettage Charu Kin, DO Actual Procedure Side Surgeon p Dilation & Curettage Not Applicable Charu Sanderson, DO Pre-Op Diagnosis Post-Op Diagnosis hemorrhage Meds Allergies and Home Medications Allergies Allergy/AdvReac Type Severity Reaction Status Date / Time No Known Drug Allergies Allergy Unknown Other (See Verified 08/18/25 14:44 Comment) Home Medication ?Medication ?Instructions ?Recorded alcohol swabs 1 pad topical QID #100 ea blood sugar diagnostic (FreeStyle #100 ea 07/19/25 Lite Strips) Held on 08/04/25. Instructions: Changed by Provider blood-glucose meter (FreeStyle #1 ea 07/19/25 Lite Meter kit) Held on 08/04/25. Instructions: Changed by Provider lancets 30 gauge #100 ea 07/19/25 blood sugar diagnostic #100 ea 08/04/25 blood sugar diagnostic (Contour #100 ea 08/04/25 Test Strips) blood-glucose meter (Contour Meter) #1 ea 08/04/25 blood-glucose meter (OneTouch #1 ea 08/04/25 Ultra2 Meter) Held on 08/04/25. Instructions: Changed by Provider lancets #200 ea 08/04/25 vitamins 30 30 mg iron-10 1 cap PO DAILY #90 caps 08/04/25 mg iron-folic acid 1 mg-om3 capsule Current Visit Medications: Current Medications Generic Name Dose Route Start Last Admin Trade Name Freq PRN Reason Stop Dose Admin Acetaminophen 650 mg 09/23/25 22:13 Acetaminophen 325 Mg Tab PO Q4H PRN PRN Dibucaine 0 gm 09/23/25 22:13 Dibucaine 1% 28 Gm Tube TP TID PRN PRN Docusate Sodium 100 mg 09/23/25 22:13 Docusate Sodium 100 Mg Cap PO BID PRN PRN Fentanyl/Ropivacaine 200 ml 09/23/25 21:00 Fentanyl/Ropivacaine 2 Mcg/Ml And 0.1% 200 Ml Cadd Cassette EP DIRECTED BRENNAN Ringer's Solution 1,000 mls @ 200 mls/hr 09/22/25 10:15 IV INFUSION BRENNAN Ringer's Solution 1,000 mls @ 125 mls/hr 09/23/25 13:15 09/23/25 13:40 IV 125 mls/hr INFUSION BRENNAN Administration Oxytocin/Sodium Chloride 30 unit in 500 mls @ 1 mls/hr 09/23/25 13:15 09/23/25 18:43 Pitocin/Normal Saline IV 12 milliunits/min INFUSION [facility] 12 mls/hr Protocol Titration 1 MILLIUNITS/MIN Oxytocin/Sodium Chloride 30 unit in 500 mls @ 95 mls/hr 09/23/25 22:15 Pitocin/Normal Saline IV INFUSION [facility] Protocol Ibuprofen 600 mg 09/23/25 22:13 Ibuprofen 600 Mg Tab PO Q6H PRN PRN Lidocaine HCl 20 ml 09/23/25 22:13 Lidocaine 1% Multi-Dose 20 Ml Vial IJ DIRECTED PRN Magnesium Hydroxide 30 ml 09/23/25 22:13 Milk Of Magnesia 30 Ml Cup PO HS PRN PRN Misoprostol 25 mcg 09/22/25 10:13 09/23/25 08:49 Misoprostol 25 Mcg Tab VG 25 mcg Q4H PRN PRN Administration Misoprostol 400 mcg 09/23/25 22:13 Misoprostol 200 Mcg Tab SL 09/24/25 22:14 PRN PRN Oxytocin 10 units 09/23/25 22:15 Oxytocin 10 Units/Ml Vial IM 09/23/26 22:14 DIRECTED BRNENAN Sodium Chloride 0 ml 09/23/25 13:12 09/23/25 13:40 Normal Saline Flush 10 Ml Syr IVP 10 ml PRN PRN Administration Sodium Chloride 0 ml 09/23/25 13:12 Normal Saline 10 Ml Vial IJ DIRECTED PRN Sodium Chloride 0 ml 09/23/25 22:13 Normal Saline Flush 10 Ml Syr IVP PRN PRN Sodium Chloride 0 ml 09/24/25 08:30 Normal Saline Flush 10 Ml Syr IVP BID BRENNAN Sodium Chloride 0 ml 09/23/25 22:13 Normal Saline 10 Ml Vial IJ DIRECTED PRN Terbutaline Sulfate 0.25 mg 09/22/25 10:13 Terbutaline 1 Mg/Ml Vial SC PRN PRN [place]/Glycerin 0 each 09/23/25 22:13 [place]/Glycerin 100 Each Box AR PRN PRN Discomfort PFSH Active Problems Active Problems: Problem Status Onset Code hemorrhage Acute O72.1 Normal spontaneous vaginal delivery Acute O80 Encounter for induction of labor Acute Z34.90 Gestational diabetes Acute O24.419 Stage 1 hypertension Acute I10 Fatigue Acute R53.83 Maternal varicella, non-immune Acute O09.899, Z28.39 Rubella non-immune status, antepartum Acute O09.899, Z28.39 History of endometriosis Acute Z87.42 Acute Z34.90 Prediabetes Chronic R73.03 Generalized anxiety disorder Chronic F41.1 Major depressive disorder, recurrent Chronic F33.9 ADHD Chronic F90.9 Dyspareunia in female Chronic N94.10 Medical History Medical History (Updated 09/23/25 @ 23:20 by Charu Sanderson DO) Low lying placenta nos or without hemorrhage, second trimester resolved per ultrasound at [facility] 06/23/25 Former tobacco use Vaginal discharge during Hyperlipidemia Allergic rhinitis Hidradenitis suppurativa Endometriosis Surgical History Surgical History S/P laparoscopic procedure (~03/2023) Hx of tympanostomy tubes Tobacco Smoking/Tobacco Use Status: Former Tobacco Use Passive smoking exposure: No Second hand exposure: Yes Alcohol Alcohol Intake: current Alcohol intake frequency: a few times a month Alcohol type: beer Substance Use Substance use: Never Substance use type: does not use Prental History History 2 1 Para 0 Hx # Term Pregnancies 0 Multiple births 0 Hx # Pregnancies 0 Ectopic pregnancies 0 AB induced 0 Hx Number of Living Children 0 AB spontaneous 0 Vital Signs and Lab Results Vital Signs Most Recent Vital Signs in EMR: Most Recent Vital Signs Temp Pulse BP Pulse Ox 36.8 C 98 H 131/61 97 09/23/25 17:16 09/23/25 23:59 09/23/25 23:53 09/23/25 23:59 Point of Care Results Point of Care Results: Finger Stick Blood Glucose 72 09/23/25 19:18 Lab Results 09/23/25 08:04 09/23/25 08:04 Blood Type / Crossmatch: 2 Antibody Screen NEGATIVE 09/23/25 Complete Blood Count: 2 WBC, (4.4-10.8) 10.06 10^3/uL 09/23/25, 08:04 RBC, (3.93-5.22) 4.63 10^6/uL 09/23/25, 08:04 Hgb, (11.2-15.7) 13.0 g/dL 09/23/25, 08:04 Hct, (36.0-46.0) 38.9 % 09/23/25, 08:04 Plt Count, (130-400) 198 10^3/uL 09/23/25, 08:04 Complete Metabolic Panel: 2 Sodium, (136-145) 140 mmol/L 09/23/25, 08:04 Potassium, (3.5-5.1) 3.7 mmol/L 09/23/25, 08:04 Chloride, (98-107) 109 mmol/L H 09/23/25, 08:04 Carbon Dioxide, (20.0-31.0) 20.7 mmol/L 09/23/25, 08 :04 BUN, (9-23) 8 mg/dL L 09/23/25, 08:04 Creatinine, (0.55-1.02) 0.49 mg/dL L 09/23/25, 08:04 Est GFR (CKD-EPI 2020), (mL/min/1.73m2) 151.41 09/23/25, 08:04 Calcium, (8.3-10.6) 9.4 mg/dL 09/23/25, 08:04 Albumin, (3.2-5.0) 3.8 g/dL 09/23/25, 08:04 Glucose, (74-106) 98 mg/dL 09/23/25, 08:04 Liver Function Panel: 2 ALT, (10-49) 9 U/L L 09/23/25, 08:04 AST, (<34) 16 U/L 09/23/25, 08:04 Toxicology Panel: 2 Ur Amphetamines Screen, (Negative) Negative 09/23, 07:05 U Benzodiazepines Scrn, (Negative) Negative 09/23, 07:05 Ur Barbiturates Screen, (Negative) Negative 09/23, 07:05 Urine Cocaine Screen, (Negative) Negative 5, 07:05 Urine Methadone Screen, (Negative) Negative 09/23, 07:05 Urine Opiates Screen, (Negative) Negative 5, 07:05 Ur Tricyclics Screen, (Negative) Negative 5, 07:05 Anesthesia Assessment and Plan Anesthesia History Personal History: No History of Anesthesia Complications Family History: No Family History of Anesthesia Complications Exercise Tolerance Exercise Tolerance: Metabolic Equivalents>4 Pertinent Negatives Pertinent Negatives: No Symptoms of GERD Cardiac & Pulmonary Exam Cardiac Exam: Normal S1/S2 Heart Sounds Pulmonary Exam: Clear Bilateral Breath Sounds Implantable Cardiac Device Does patient have a Pacemaker or an ICD?: No Airway Exam Known Difficult Airway: No Mallampati Class: 2 Mouth Opening: Normal (> 3cm) Thyromental Distance: Greater than 3 cm Neck Range of Motion: Full ROM Neck Circumference: Normal Teeth Condition: Normal Dentition ASA Classification ASA Score: ASA 2 Emergency Case?: Yes NPO Status NPO Status: Full Stomach (Not NPO. Immediate post-) Status Status: Not Relevant due to Medical History Anesthesia Plan Resuscitation Status: Full Code Anesthesia Technique: General Anesthesia Airway Planned: Endotracheal Tube Monitors Used: Standard Monitors and SedLine
--- NOTE | 2025-09-24 00:23 | POC_PTH ---
PATIENT: Julito Patel LOC: OBS U#:[id number] AGE/SX: 25/F ROOM: OBS.304 RE09/23/[address]: Charu Sanderson DO : 2000 BED: A DIS: 09/25/2025 SPEC #: [id number] RECD: 09/26/25 12:54 STATUS: SOUIsacc REQ #: [id number] STEVIE: 09/24/25 00:[address]: Charu Sanderson DEPT: Surgical Specimen RECD BY: Leena Blunt ENTERED: 09/26/25 12:55 SP TYPE: POC OTHR DR: CHAR Cruz Tissues: 1 - INDUCED Procedures: GROSS AND MICRO LEVEL 3 Comments: [id number]
--- NOTE | 2025-09-24 01:11 | W.PM.OP ---
Operative Note Operative Note PRE-OP DIAGNOSIS: hemorrhage POST-OP DIAGNOSIS: same Uterine atony, small posterior cervical laceration, repair of second-degree perineal laceration. PROCEDURE: Exam under anesthesia, uterine curettage, repair of cervical laceration, repair of second-degree perineal laceration SURGEON: Charu Sanderson ANESTHESIA TYPE: General LMA/ETT Refer to Anesthesia Record ESTIMATED BLOOD LOSS: 1,000 PATHOLOGY: other (Uterine contents for examination) COMPLICATIONS: None Patient was transported to: PACU Patient's condition: stable Indications: hemorrhage Findings: Small fragment of placental tissue versus clot sent to pathology. Posterior cervical laceration, lower uterine segment atony, previous second-degree laceration repaired Procedure Description: After full informed consent was obtained, patient was taken the operating suite despite a qualitative blood loss of less than 1000 cc. At the time of delivery, she had rapid progression from 7 cm to complete with a very short second stage. At the time of delivery, she had a 350 cc qualitative blood loss. She had a second-degree perineal laceration which was repaired and hemostatic. Complete visualization of the posterior aspect of the cervix could not be assured. At the time of delivery, she had a straight catheterization for 100 cc of urine. Post delivery, she passed a significant clot and a 400 cc additional qualitative blood loss. Within the next 1-1/2 hours, she passed another 100 cc for 850 cc at that time. In light of the fact that she did not have adequate analgesia, the decision was made to take her to the operating suite for exam under anesthesia, uterine curettage, repair of lacerations as indicated. Full informed consent was obtained. She was taken the operating suite with an IV running. She received 2 g of Ancef for infection prophylaxis. She had pneumatic compression stockings for DVT prophylaxis. She was placed in the dorsal supine position and endotracheal intubation performed for the administration of general anesthesia without difficulty. She was prepped and draped in the usual sterile fashion and a timeout was held. Examiner anesthesia and uterine massage expressed a large, 500 cc clot. At this point, the bladder was drained for 125 cc of clear yellow urine. A systematic approach to examination of her uterus, cervix, vagina, and perineum was undertaken. Weighted speculum was placed into the vaginal vault. Ring forcep was used to grasp the anterior lip of the cervix. A large banjo curette was passed easily within the uterine cavity and the uterine curettage performed. The coarse cry of the uterus could be felt in all 4 quadrants. The uterus was then firm and relatively contracted. At this point attention was turned to the previous second-degree perineal laceration which previous sutures were somewhat disrupted so removed and the secondary perineal laceration was repaired in the usual fashion. Appropriate cosmesis and hemostasis was achieved. At this point, there is noted to be a continued small trickle of blood. Speculum reinserted into the vaginal vault along with a vaginal sidewall retractor. A ring forcep was used to evaluate the entirety of the cervix from anterior to posterior. There was noted to be a small area at the posterior position of the cervix at the 5 o'clock position which was oversewn with a single stitch of 3-0 Vicryl suture and hemostasis again achieved. Uterus at this point was firm, bladder was empty, vaginal vault appeared intact without hematoma or deeper laceration. Second-degree perineal laceration repaired appropriately and hemostatic. At this point, the patient was returned to the dorsal supine position after removal of all instruments and draping. She awoke from anesthesia without difficulty and was taken the postanesthesia care unit in stable condition. EBL: 1000 mL Pathology: Uterine contents sent for examination Complications: None apparent Findings: Uterine atony with clot retention, resolved. Posterior cervical laceration at the 5 o'clock position, repaired. Second-degree perineal laceration, previous sutures taken down and reapproximated with hemostasis achieved. Fluids: Crystalloid per anesthesia Intraoperatively, patient did receive IV Pitocin, and TXA, 1 g IV. Date of Procedure: 09/24/25
[2025-09-24] MEDS: Ibuprofen 600 MG TAB PO ×4 (01:59→21:06)
[2025-09-24 04:00] LABS: Abs Immature Grans 0.23 10^3/uL (0.0-0.06); HCT 31.2 % (36.0-46.0); HGB 10.6 g/dL (11.2-15.7); Immature Grans % 1.3 %; MCH 28.7 pg (27.0-33.0); MCHC 34.0 % (32.0-36.0); MCV 85 fL (80-95); MPV 9.6 fL (8.0-11.0); Platelet Count 188 10^3/uL (130-400); RBC 3.69 10^6/uL (3.93-5.22); RDW 12.9 % (11.7-14.6); RDW-SD 38.9 fL; WBC 17.15 10^3/uL (4.4-10.8)
--- NOTE | 2025-09-24 07:24 | W.PM.OBPNV1 ---
Date of service: 09/24/25 Time of Service: 08:05 Assessment and Plan Assessment and plan (1) Normal spontaneous vaginal delivery: Status: Acute Assessment and plan: Doing well. Now scant bleeding. Circ for tomorrow. (2) hemorrhage: Status: Acute Assessment and plan: CBC this afternoon (3) Postoperative state: Status: Acute Subjective Subjective Interval history: Patient seen and examined. Events of last night reviewed with the patient. Doing well this AM. Scant bleeding. Patient comments: No complaints [place] baby status: Doing well and Nursing well [place] feeding status: Exclusively breast feeding Exam Physical Exam Vital signs: Temp Pulse Resp BP Pulse Ox 97.7 F 91 H 17 126/69 97 09/24/25 01:35 09/24/25 05:29 09/24/25 01:35 09/24/25 05:09/24/25 01:46 Vital Signs Reviewed: Yes Constitutional Constitutional: no acute distress HEENT Exam HEENT Exam: Normal Neck Exam Neck Exam: Normal Respiratory Exam Respiratory Exam: Normal Cardiovascular Exam Cardiovascular Exam: Normal Abdominal Exam Abdomen: Tender Fundal Exam Fundus: Below Umbilicus and Firm Extremities Exam Extremity Exam: Normal and Edema (1+); negative Calf Tenderness Skin Exam Skin Exam: Normal Neurological Exam Neurological Exam: Normal Psychiatric Exam Psychiatric Exam: Normal Results Hemoglobin/Hematocrit: Hgb Cancelled 09/24/25 06:00 Hct Cancelled 09/24/25 06:00 Abnormal Lab Findings: Abnormal Labs 09/23/25 09/24/25 08:04 03:55 WBC 17.15 H RBC 3.69 L Hgb 10.6 L D Hct 31.2 L Absolute Neutrophils 7.54 H 15.80 H Absolute Lymphocytes 0.82 L Chloride 109 H BUN 8 L Creatinine 0.49 L ALT 9 L Alkaline Phosphatase 157 H
[2025-09-24] MEDS: Acetaminophen 325 MG TAB 650 MG PO ×4 (07:32→21:05)
[2025-09-24] MEDS: Docusate Sodium 100 MG CAP PO ×2 (07:33→23:37)
[2025-09-24 12:32] LABS: Abs Immature Grans 0.22 10^3/uL (0.0-0.06); HCT 30.1 % (36.0-46.0); HGB 10.1 g/dL (11.2-15.7); Immature Grans % 1.3 %; MCH 28.4 pg (27.0-33.0); MCHC 33.6 % (32.0-36.0); MCV 85 fL (80-95); MPV 9.3 fL (8.0-11.0); Platelet Count 215 10^3/uL (130-400); RBC 3.56 10^6/uL (3.93-5.22); RDW 12.9 % (11.7-14.6); RDW-SD 39.0 fL; WBC 16.60 10^3/uL (4.4-10.8)
[2025-09-24] MEDS: Varicella Virus Vaccine (Live) 0.5 ML SC (16:04)
--- NOTE | 2025-09-24 16:32 | W.ANESPOSTOP ---
Postoperative Evaluation Date, Time and Location Date Performed: 09/24/25 Time Performed: 16:32 Patient Location: Obstetrics Vital Signs Most Recent Imported Vital Signs: Most Recent Vital Signs Temp Pulse Resp BP Pulse Ox 37.1 C 111 H 16 123/79 97 09/24/25 07:30 09/24/25 07:30 09/24/25 07:30 09/24/25 07:30 09/24/25 01:46 Pain Score Most Recent Pain Score: Most Recent Pain Score Pain Level [Lower Abdomen] 1 09/24/25 07:30 Pain Level 1 09/24/25 16:06 Assessment Mental Status: Awake (Alert & Oriented to Patient Baseline) Airway and Respiratory Function: Patent airway with normal (patient baseline) respiratory exam Cardiovascular Function: Hemodynamically Stable Hydration Status: Adequately Hydrated Nausea & Vomiting: No Nausea or Vomiting Pain: Pain is tolerable per patient Peripheral Nerve Block: Patient did not receive a nerve block
[2025-09-25] MEDS: Acetaminophen 325 MG TAB 650 MG PO (03:20)
[2025-09-25] MEDS: Ibuprofen 600 MG TAB PO (03:20)
[2025-09-25 03:22] VITALS: BP 135/82; PULSE 105; RESP 18
--- NOTE | 2025-09-25 07:58 | OBPPV_ITS ---
Date of service: 09/25/25 Time of Service: 07:58 Assessment and Plan Assessment and plan (1) Normal spontaneous vaginal delivery: Status: Acute Assessment and plan: Patient is day #2 status post vaginal delivery. Had a labor induction at 38 weeks due to gestational diabetes and stage I hypertension. She was admitted, received 1 dose of misoprostol, Pitocin augmentation, artificial rupture of membranes, and had a spontaneous vaginal with viable male infant. Subsequent term delivery, she had a hemorrhage. She was taken to the operating suite for evaluation. (2) hemorrhage: Status: Acute Assessment and plan: Total blood loss was just under 2 L. Post hemorrhage hemoglobin was stable at 10.1. In the operating suite she had exam under anesthesia, uterine curettage, repair of posterior cervical laceration, and reapproximation of her second- degree midline laceration. (3) Rubella non-immune status, antepartum: Status: Acute Assessment and plan: Vaccination prior to discharge as patient desires (4) Maternal varicella, non-immune: Status: Acute Assessment and plan: Vaccination prior to discharge if patient desires Exam Physical Exam Vital signs: Temp Pulse Resp BP Pulse Ox 98.2 F 105 H 18 135/82 99 09/24/25 21:08 09/25/25 03:22 09/25/25 03:22 09/25/25 03:22 09/24/25 21:08 Vital Signs Reviewed: Yes Notable Details: Mild tachycardia, appropriate urine output Constitutional Constitutional: no acute distress HEENT Exam HEENT Exam: Normal Respiratory Exam Respiratory Exam: Normal Cardiovascular Exam Cardiovascular Exam: Normal Abdominal Exam Comments: Soft nontender Fundal Exam Fundus: Below Umbilicus and Firm Extremities Exam Extremity Exam: Normal; negative Calf Tenderness or Cold to Touch Skin Exam Skin Exam: Normal Neurological Exam Neurological Exam: Normal Psychiatric Exam Psychiatric Exam: Normal Results Hemoglobin/Hematocrit: Hgb 10.1 g/dL (11.2-15.7) L 09/24/25 12:24 Hct 30.1 % (36.0-46.0) L 09/24/25 12:24 Abnormal Lab Findings: Abnormal Labs 09/23/25 09/24/25 09/24/25 08:04 03:55 12:24 WBC 17.15 H 16.60 H RBC 3.69 L 3.56 L Hgb 10.6 L D 10.1 L Hct 31.2 L 30.1 L Absolute Neutrophils 7.54 H 15.80 H 13.68 H Absolute Lymphocytes 0.82 L Chloride 109 H BUN 8 L Creatinine 0.49 L ALT 9 L Alkaline Phosphatase 157 H
--- NOTE | 2025-09-25 08:02 | DSE_ITS ---
Date of service: 09/25/25 Time of Service: 08:02 DS: Diagnosis Discharge Diagnosis (1) Normal spontaneous vaginal delivery: Status: Acute Asessment and Plan: day #2, vaginal , male infant. circumcision performed at patient's request. hemorrhage with transition to the OR. (2) hemorrhage: Status: Acute Asessment and Plan: 2 L hemorrhage. Evaluation in the surgical suite with exam under anesthesia, uterine curettage, repair of posterior cervical laceration, reapproximation of second-degree perineal laceration. Remained stable thereafter. (3) Rubella non-immune status, antepartum: Status: Acute (4) Maternal varicella, non-immune: Status: Acute Discharge Plan Disposition Patient Disposition: Home Condition: Good Discharge Details Reason For Visit: iup at 38 weeks, GDM, HTN Admit Date/Time: 09/23/25 07:13 Admit Provider: Charu Sanderson Attending Provider: Charu Sanderson Primary Care Provider: [facility] Course Hospital Course: Patient was admitted at 38 weeks gestation for labor induction due to stage I hypertension, and diet-controlled gestational diabetes. She received cervical ripening with 1 dose of misoprostol, followed by Pitocin augmentation, followed by artificial rupture of membranes with a normal vaginal . She had a hemorrhage most likely multifactorial due to uterine atony, small posterior cervical laceration, and perineal laceration. Postdelivery, patient was evaluated in the surgical suite. She had an approximately 2 L total blood loss. Her hemoglobin remained stable at 10.1 post procedure. She did well otherwise and was transition to home day #2, ambulating, tolerating regular diet pain medication with stable vital signs. She will be seen in the office in 1, 2, and 6 weeks. She had a male Home Meds and New Rx's Prescriptions: New ibuprofen 600 mg tablet 600 mg PO Q6H PRNQty: 60 1RF No Action (DME) blood-glucose meter [OneTouch Ultra2 Meter] Misc See Rx Instructions .ROUTE .MEDSUPPLY Qty: 1 0RF Rx Instructions: QID testing (DME) blood sugar diagnostic Strip See Rx Instructions .ROUTE .MEDSUPPLY Qty: 100 3RF Rx Instructions: As directed, QID testing (DME) lancets Misc See Rx Instructions .ROUTE .MEDSUPPLY Qty: 200 2RF Rx Instructions: As directed PNV [id number] 30 mg iron-10 mg iron-1 mg capsule 1 cap PO DAILY Qty: 90 3RF alcohol swabs Pads, Medicated 1 pad topical QID Qty: 100 5RF (DME) FreeStyle Lite Strips Strip See Rx Instructions .Route Qty: 100 5RF Rx Instructions: QID (DME) blood-glucose meter [FreeStyle Lite Meter] Kit See Rx Instructions .Route Qty: 1 0RF Rx Instructions: As directed (DME) lancets 30 gauge misc See Rx Instructions .Route Qty: 100 5RF Rx Instructions: QID (DME) blood-glucose meter [Contour Meter] Misc See Rx Instructions .Route Qty: 1 0RF Rx Instructions: As directed (DME) Contour Test Strips Strip See Rx Instructions .Route Qty: 100 1RF Rx Instructions: As directed, qid testing Discharge Instructions Additional Instructions: Follow-up with Dr. Sanderson in 1, 1, and 6 weeks Stand Alone Forms: Portal Information Activity:: Pelvic rest Equipment/Supplies:: No Equipment Needed Diet:: As Tolerated OB:DS Summary Summary Vaginal Delivery Method: Spontaneaous Episiotomy Description: None Laceration Description: Perineal Laceration Extension: Second Degree Contraception Discussed Contraception Discussed: Yes Contraceptive Plan: Undecided, Gender-Baby A: Male weight: 6 lb 14.76 oz Status at Discharge Functional status at discharge: independent ambulation Overall status at discharge: patient is progressing back to baseline Mental Status: mental status grossly normal Speech and Movement: speech and movement normal Mood: congruent mood Affect: normal affect Exam Physical Exam Vital signs: Temp Pulse Resp BP Pulse Ox 98.2 F 105 H 18 135/82 99 09/24/25 21:08 09/25/25 03:22 09/25/25 03:22 09/25/25 03:22 09/24/25 21:08 Narrative: See physical examination progress note dated 09/25/2025 [facility], [facility] All Active Problems (Updated 09/24/25 @ 01:22 by Charu Sanderson DO) Postoperative state (Acute) Exam under anesthesia, uterine curettage, repair of cervical laceration, repair of perineal laceration postdelivery 09/24/2025. hemorrhage (Acute) QBL of 750 cc at this point. To the OR for evaluation 09/23/2025 EBL 1000 cc intraoperatively including clot. Total blood loss 1750 Normal spontaneous vaginal delivery (Acute) Status postnormal spontaneous vaginal delivery after induction of labor. 1 dose misoprostol followed by Pitocin and artificial rupture of membranes. 09/23/2025 Jacky Gage Encounter for induction of labor (Acute) Gestational diabetes (Acute) Stage 1 hypertension (Acute) Fatigue (Acute) Maternal varicella, non-immune (Acute) Rubella non-immune status, antepartum (Acute) History of endometriosis (Acute) (Acute) Prediabetes (Chronic) Generalized anxiety disorder (Chronic) Major depressive disorder, recurrent (Chronic) ADHD (Chronic) Dyspareunia in female (Chronic) Medical History (Updated 09/24/25 @ 01:22 by Charu Sanderson DO) Low lying placenta nos or without hemorrhage, second trimester resolved per ultrasound at [facility] [place] 06/23/25 Former tobacco use Vaginal discharge during Hyperlipidemia Allergic rhinitis Hidradenitis suppurativa Endometriosis Surgical History (Updated 09/24/25 @ 01:21 by Charu Sanderson DO) S/P laparoscopic procedure (~03/2023) Hx of tympanostomy tubes Family History Mother Depression ADHD Father Depression Memory loss Sister ADHD Sister Anxiety Maternal Grandfather Alcohol use disorder Depression Memory loss Hyperlipidemia Maternal Grandmother Hypertension Alcohol use disorder Depression Paternal Grandfather No problems noted. Paternal Grandmother No problems noted. Social History Smoking/Tobacco Use Status: Former Tobacco Use tobacco type: cigarettes Quit Date: 10/27/21 Second Hand Exposure: Yes Smoking risk assessment performed?: Yes Alcohol Intake: current Alcohol Intake frequency: a few times a month Alcohol type: beer Drug use: Never Substance use type: does not use Caregiver/Support person: No Household members: significant other Housing: house Communication Needs: None Do you need help understanding health information?: Never Pets and animals: Yes Pets and animals: dog(s) Sexually active: Yes Do you think of yourself as: straight/heterosexual Current gender identity: female What is your relationship status?: living with partner How often do you talk on the phone with friends or family?: never How often do you get together with friends or relatives?: never How often do you attend islam or pentecostal services?: decline to answer Do you belong to any clubs or organized social groups?: no Panel score (0-1 are the most socially isolated patients): 1 What type of physical activity do you participate in: none Frequency: does not exercise Maci/Scientologist: None Special maci needs: No Seatbelt use: always Helmet use: Yes Helmet use: always 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 Do you feel safe at home: Yes Do you feel safe in your relationship?: No History History 1 Para 0 Hx # Term Pregnancies 0 Multiple births 0 Hx # Pregnancies 0 Ectopic pregnancies 0 AB induced 0 Hx Number of Living Children 0 AB spontaneous 0 DS: Data Vitals/I&O Vitals and I&O: Vital Signs Temperature 98.2 F 09/24/25 21:08 Temperature Source Oral 09/24/25 21:08 Pulse 105 H 09/25/25 03:22 Pulse Rhythm Regular 09/24/25 21:56 Pulse 96 H 09/24/25 01:30 Respiratory Rate 18 09/25/25 03:22 Respiratory Depth Normal 09/23/25 15:00 Blood Pressure 135/82 09/25/25 03:22 Blood Pressure Mean 99 09/25/25 03:22 Pulse Oximetry 99 09/24/25 21:08 Respiratory End-tidal CO2 35 09/24/25 01:35 Oxygen Delivery Method Nasal Cannula 09/24/25 01:20 Oxygen Flow Rate 0 09/24/25 01:20 Pain Level 0 09/24/25 17:06 Comment Varicella injection given 09/24/25 16:00 Intake & Output 09/24/25 09/24/25 09/25/25 11:59 23:59 11:59 Intake Total 433 / 433 Output Total 5000 / 5000 Balance -4567 / -4567 Weight 186 lb Intake: IV 433 / 433 Output: Urine 4000 / 4000 Estimated Blood Loss 1000 / 1000 Other: Urine Color Yellow Yellow Urine Appearance Clear Urine Odor None Emesis Description None Data Completed and Pending Pending Labs at Discharge: 09/23/25 09/23/25 09/24/25 07:05 08:04 03:55 WBC 10.06 17.15 H RBC 4.63 3.69 L Hgb 13.0 10.6 L D Hct 38.9 31.2 L MCV 84 85 MCH 28.1 28.7 MCHC 33.4 34.0 RDW 13.0 12.9 Plt Count 198 188 MPV 9.2 9.6 Immature Gran % 1.7 1.3 Neutrophils % 74.9 92.1 Band Neutrophils % Lymphocytes % 17.1 4.8 Atypical Lymphs % Monocytes % 4.5 1.6 Eosinophils % 1.2 0.0 Basophils % 0.6 0.2 Metamyelocytes % Myelocytes % Promyelocytes % Other Cells % Nucleated RBC % 0.0 0.0 Absolute Neutrophils 7.54 H 15.80 H Absolute Lymphocytes 1.72 0.82 L Absolute Monocytes 0.45 0.27 Absolute Eosinophils 0.12 0.00 Absolute Basophils 0.06 0.03 RBC Morphology Polychromasia Hypochromasia Poikilocytosis Basophilic Stippling Anisocytosis Microcytosis Macrocytosis Spherocytes Tear Drop Cells Ovalocytes Stomatocytes [place] Bodies [place] Cells/Echinocytes Acanthocytes (Spur) Schistocytes Sodium 140 Potassium 3.7 Chloride 109 H Carbon Dioxide 20.7 Anion Gap 10.3 BUN 8 L Creatinine 0.49 L Est GFR (CKD-EPI 2020) 151.41 Glucose 98 Calcium 9.4 Total Bilirubin 0.90 AST 16 ALT 9 L Alkaline Phosphatase 157 H Total Protein 6.6 Albumin 3.8 Urine Opiates Screen Negative Urine Methadone Screen Negative Urine Fentanyl Screen Negative Ur Barbiturates Screen Negative Ur Tricyclics Screen Negative Ur Amphetamines Screen Negative U Benzodiazepines Scrn Negative Urine Cocaine Screen Negative U Cannabinoids Screen Negative ABO/Rh A Positive Antibody Screen NEGATIVE 09/24/25 09/24/25 06:00 12:24 WBC Cancelled 16.60 H RBC Cancelled 3.56 L Hgb Cancelled 10.1 L Hct Cancelled 30.1 L MCV Cancelled 85 MCH Cancelled 28.4 MCHC Cancelled 33.6 RDW Cancelled 12.9 Plt Count Cancelled 215 MPV Cancelled 9.3 Immature Gran % Cancelled 1.3 Neutrophils % Cancelled 82.4 Band Neutrophils % Cancelled Lymphocytes % Cancelled 11.3 Atypical Lymphs % Cancelled Monocytes % Cancelled 4.6 Eosinophils % Cancelled 0.1 Basophils % Cancelled 0.3 Metamyelocytes % Cancelled Myelocytes % Cancelled Promyelocytes % Cancelled Other Cells % Cancelled Nucleated RBC % Cancelled 0.0 Absolute Neutrophils Cancelled 13.68 H Absolute Lymphocytes Cancelled 1.88 Absolute Monocytes Cancelled 0.76 Absolute Eosinophils Cancelled 0.02 Absolute Basophils Cancelled 0.05 RBC Morphology Cancelled Polychromasia Cancelled Hypochromasia Cancelled Poikilocytosis Cancelled Basophilic Stippling Cancelled Anisocytosis Cancelled Microcytosis Cancelled Macrocytosis Cancelled Spherocytes Cancelled Tear Drop Cells Cancelled Ovalocytes Cancelled Stomatocytes Cancelled [place] Bodies Cancelled [place] Cells/Echinocytes Cancelled Acanthocytes (Spur) Cancelled Schistocytes Cancelled Sodium Potassium Chloride Carbon Dioxide Anion Gap BUN Creatinine Est GFR (CKD-EPI 2020) Glucose Calcium Total Bilirubin AST ALT Alkaline Phosphatase Total Protein Albumin Urine Opiates Screen Urine Methadone Screen Urine Fentanyl Screen Ur Barbiturates Screen Ur Tricyclics Screen Ur Amphetamines Screen U Benzodiazepines Scrn Urine Cocaine Screen U Cannabinoids Screen ABO/Rh Antibody Screen
--- NOTE | 2025-09-25 08:08 | DSE_ITS ---
DS: Diagnosis Discharge Diagnosis (1) Normal spontaneous vaginal delivery: Status: Acute (2) hemorrhage: Status: Acute (3) Rubella non-immune status, antepartum: Status: Acute (4) Maternal varicella, non-immune: Status: Acute Discharge Plan Disposition Patient Disposition: Home Condition: Good Discharge Details Reason For Visit: iup at 38 weeks, GDM, HTN Admit Date/Time: 09/23/25 07:13 Admit Provider: Charu Sanderson Attending Provider: Charu Sanderson [facility]: Patient was admitted at 38 weeks gestation for labor induction due to stage I hypertension, and diet-controlled gestational diabetes. She received cervical ripening with 1 dose of misoprostol, followed by Pitocin augmentation, followed by artificial rupture of membranes with a normal vaginal . She had a hemorrhage most likely multifactorial due to uterine atony, small posterior cervical laceration, and perineal laceration. Postdelivery, patient was evaluated in the surgical suite. She had an approximately 2 L total blood loss. Her hemoglobin remained stable at 10.1 post procedure. She did well otherwise and was transition to home day #2, ambulating, tolerating regular diet pain medication with stable vital signs. She will be seen in the office in 1, 2, and 6 weeks. She had a male Home Meds and New Rx's Prescriptions: New ibuprofen 600 mg tablet 600 mg PO Q6H PRNQty: 60 1RF No Action (DME) blood-glucose meter [OneTouch Ultra2 Meter] Misc See Rx Instructions .ROUTE .MEDSUPPLY Qty: 1 0RF Rx Instructions: QID testing (DME) blood sugar diagnostic Strip See Rx Instructions .ROUTE .MEDSUPPLY Qty: 100 3RF Rx Instructions: As directed, QID testing (DME) lancets Misc See Rx Instructions .ROUTE .MEDSUPPLY Qty: 200 2RF Rx Instructions: As directed PNV [id number] 30 mg iron-10 mg iron-1 mg capsule 1 cap PO DAILY Qty: 90 3RF alcohol swabs Pads, Medicated 1 pad topical QID Qty: 100 5RF (DME) FreeStyle Lite Strips Strip See Rx Instructions .Route Qty: 100 5RF Rx Instructions: QID (DME) blood-glucose meter [FreeStyle Lite Meter] Kit See Rx Instructions .Route Qty: 1 0RF Rx Instructions: As directed (DME) lancets 30 gauge misc See Rx Instructions .Route Qty: 100 5RF Rx Instructions: QID (DME) blood-glucose meter [Contour Meter] Misc See Rx Instructions .Route Qty: 1 0RF Rx Instructions: As directed (DME) Contour Test Strips Strip See Rx Instructions .Route Qty: 100 1RF Rx Instructions: As directed, qid testing Discharge Instructions Additional Instructions: Follow-up with Dr. Sanderson in 1, 1, and 6 weeks Stand Alone Forms: Portal Information Activity:: Pelvic rest Equipment/Supplies:: No Equipment Needed Diet:: As Tolerated Discharge Orders Discharge Orders: Discharge Order (Routine); Ordered 09/25/25 Ordered By: Charu Sanderson OB:DS Summary Summary Vaginal Delivery Method: Spontaneaous Episiotomy Description: None Laceration Description: Perineal Laceration Extension: Second Degree Contraception Discussed Contraception Discussed: Yes, [place] Infant Gender-Baby A: Male weight: 6 lb 14.76 oz Exam Physical Exam Vital signs: Temp Pulse Resp BP Pulse Ox 98.2 F 105 H 18 135/82 99 09/24/25 21:08 09/25/25 03:22 09/25/25 03:22 09/25/25 03:22 09/24/25 21:08 PFSH All Active Problems (Updated 09/24/25 @ 01:22 by Charu Sanderson, DO) Postoperative state (Acute) Exam under anesthesia, uterine curettage, repair of cervical laceration, repair of perineal laceration postdelivery 09/24/2025. hemorrhage (Acute) QBL of 750 cc at this point. To the OR for evaluation 09/23/2025 EBL 1000 cc intraoperatively including clot. Total blood loss 1750 Normal spontaneous vaginal delivery (Acute) Status postnormal spontaneous vaginal delivery after induction of labor. 1 dose misoprostol followed by Pitocin and artificial rupture of membranes. 09/23/2025 Jacky Gage Encounter for induction of labor (Acute) Gestational diabetes (Acute) Stage 1 hypertension (Acute) Fatigue (Acute) Maternal varicella, non-immune (Acute) Rubella non-immune status, antepartum (Acute) History of endometriosis (Acute) (Acute) Prediabetes (Chronic) Generalized anxiety disorder (Chronic) Major depressive disorder, recurrent (Chronic) ADHD (Chronic) Dyspareunia in female (Chronic) Medical History (Updated 09/24/25 @ 01:22 by Charu Sanderson DO) Low lying placenta nos or without hemorrhage, second trimester resolved per ultrasound at [facility] [place] 06/23/25 Former tobacco use Vaginal discharge during Hyperlipidemia Allergic rhinitis Hidradenitis suppurativa Endometriosis Surgical History (Updated 09/24/25 @ 01:21 by Charu Sanderson DO) S/P laparoscopic procedure (~03/2023) Hx of tympanostomy tubes Family History Mother Depression ADHD Father Depression Memory loss Sister ADHD Sister Anxiety Maternal Grandfather Alcohol use disorder Depression Memory loss Hyperlipidemia Maternal Grandmother Hypertension Alcohol use disorder Depression Paternal Grandfather No problems noted. Paternal Grandmother No problems noted. Social History Smoking/Tobacco Use Status: Former Tobacco Use tobacco type: cigarettes Quit Date: 10/27/21 Second Hand Exposure: Yes Smoking risk assessment performed?: Yes Alcohol Intake: current Alcohol Intake frequency: a few times a month Alcohol type: beer Drug use: Never Substance use type: does not use Caregiver/Support person: No Household members: significant other Housing: house Communication Needs: None Do you need help understanding health information?: Never Pets and animals: Yes Pets and animals: dog(s) Sexually active: Yes Do you think of yourself as: straight/heterosexual Current gender identity: female What is your relationship status?: living with partner How often do you talk on the phone with friends or family?: never How often do you get together with friends or relatives?: never How often do you attend orthodoxy or confucianist services?: decline to answer Do you belong to any clubs or organized social groups?: no Panel score (0-1 are the most socially isolated patients): 1 What type of physical activity do you participate in: none Frequency: does not exercise Maci/Anglican: None Special maci needs: No Seatbelt use: always Helmet use: Yes Helmet use: always 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 Do you feel safe at home: Yes Do you feel safe in your relationship?: No History History 1 Para 0 Hx # Term Pregnancies 0 Multiple births 0 Hx # Pregnancies 0 Ectopic pregnancies 0 AB induced 0 Hx Number of Living Children 0 AB spontaneous 0 DS: Data Vitals/I&O Vitals and I&O: Vital Signs Temperature 98.2 F 09/24/25 21:08 Temperature Source Oral 09/24/25 21:08 Pulse 105 H 09/25/25 03:22 Pulse Rhythm Regular 09/24/25 21:56 Pulse 96 H 09/24/25 01:30 Respiratory Rate 18 09/25/25 03:22 Respiratory Depth Normal 09/23/25 15:00 Blood Pressure 135/82 09/25/25 03:22 Blood Pressure Mean 99 09/25/25 03:22 Pulse Oximetry 99 09/24/25 21:08 Respiratory End-tidal CO2 35 09/24/25 01:35 Oxygen Delivery Method Nasal Cannula 09/24/25 01:20 Oxygen Flow Rate 0 09/24/25 01:20 Pain Level 0 09/24/25 17:06 Comment Varicella injection given 09/24/25 16:00 Intake & Output 09/24/25 09/24/25 09/25/25 11:59 23:59 11:59 Intake Total 433 / 433 Output Total 5000 / 5000 Balance -4567 / -4567 Weight 186 lb Intake: IV 433 / 433 Output: Urine 4000 / 4000 Estimated Blood Loss 1000 / 1000 Other: Urine Color Yellow Yellow Urine Appearance Clear Urine Odor None Emesis Description None Data Completed and Pending Pending Labs at Discharge: 09/23/25 09/23/25 09/24/25 07:05 08:04 03:55 WBC 10.06 17.15 H RBC 4.63 3.69 L Hgb 13.0 10.6 L D Hct 38.9 31.2 L MCV 84 85 MCH 28.1 28.7 MCHC 33.4 34.0 RDW 13.0 12.9 Plt Count 198 188 MPV 9.2 9.6 Immature Gran % 1.7 1.3 Neutrophils % 74.9 92.1 Band Neutrophils % Lymphocytes % 17.1 4.8 Atypical Lymphs % Monocytes % 4.5 1.6 Eosinophils % 1.2 0.0 Basophils % 0.6 0.2 Metamyelocytes % Myelocytes % Promyelocytes % Other Cells % Nucleated RBC % 0.0 0.0 Absolute Neutrophils 7.54 H 15.80 H Absolute Lymphocytes 1.72 0.82 L Absolute Monocytes 0.45 0.27 Absolute Eosinophils 0.12 0.00 Absolute Basophils 0.06 0.03 RBC Morphology Polychromasia Hypochromasia Poikilocytosis Basophilic Stippling Anisocytosis Microcytosis Macrocytosis Spherocytes Tear Drop Cells Ovalocytes Stomatocytes Aceved[place] Bodies [place] Cells/Echinocytes Acanthocytes (Spur) Schistocytes Sodium 140 Potassium 3.7 Chloride 109 H Carbon Dioxide 20.7 Anion Gap 10.3 BUN 8 L Creatinine 0.49 L Est GFR (CKD-EPI 2020) 151.41 Glucose 98 Calcium 9.4 Total Bilirubin 0.90 AST 16 ALT 9 L Alkaline Phosphatase 157 H Total Protein 6.6 Albumin 3.8 Urine Opiates Screen Negative Urine Methadone Screen Negative Urine Fentanyl Screen Negative Ur Barbiturates Screen Negative Ur Tricyclics Screen Negative Ur Amphetamines Screen Negative U Benzodiazepines Scrn Negative Urine Cocaine Screen Negative U Cannabinoids Screen Negative ABO/Rh A Positive Antibody Screen NEGATIVE 09/24/25 09/24/25 06:00 12:24 WBC Cancelled 16.60 H RBC Cancelled 3.56 L Hgb Cancelled 10.1 L Hct Cancelled 30.1 L MCV Cancelled 85 MCH Cancelled 28.4 MCHC Cancelled 33.6 RDW Cancelled 12.9 Plt Count Cancelled 215 MPV Cancelled 9.3 Immature Gran % Cancelled 1.3 Neutrophils % Cancelled 82.4 Band Neutrophils % Cancelled Lymphocytes % Cancelled 11.3 Atypical Lymphs % Cancelled Monocytes % Cancelled 4.6 Eosinophils % Cancelled 0.1 Basophils % Cancelled 0.3 Metamyelocytes % Cancelled Myelocytes % Cancelled Promyelocytes % Cancelled Other Cells % Cancelled Nucleated RBC % Cancelled 0.0 Absolute Neutrophils Cancelled 13.68 H Absolute Lymphocytes Cancelled 1.88 Absolute Monocytes Cancelled 0.76 Absolute Eosinophils Cancelled 0.02 Absolute Basophils Cancelled 0.05 RBC Morphology Cancelled Polychromasia Cancelled Hypochromasia Cancelled Poikilocytosis Cancelled Basophilic Stippling Cancelled Anisocytosis Cancelled Microcytosis Cancelled Macrocytosis Cancelled Spherocytes Cancelled Tear Drop Cells Cancelled Ovalocytes Cancelled Stomatocytes Cancelled [place]ved[place] Bodies Cancelled [place] Cells/Echinocytes Cancelled Acanthocytes (Spur) Cancelled Schistocytes Cancelled Sodium Potassium Chloride Carbon Dioxide Anion Gap BUN Creatinine Est GFR (CKD-EPI 2020) Glucose Calcium Total Bilirubin AST ALT Alkaline Phosphatase Total Protein Albumin Urine Opiates Screen Urine Methadone Screen Urine Fentanyl Screen Ur Barbiturates Screen Ur Tricyclics Screen Ur Amphetamines Screen U Benzodiazepines Scrn Urine Cocaine Screen U Cannabinoids Screen ABO/Rh Antibody Screen
[2025-09-25 08:52] VITALS: BP 129/83; PULSE 96; RESP 18; TEMP 36.9; O2SAT 99
[2025-09-25] MEDS: Hamamelis Leaf/Glycerin 100 EACH BOX PR (14:01)
[2025-09-25] MEDS: Dibucaine 1% 28 GM TUBE TP (14:02)
== END 2025-09-25 14:00 | disposition home or self-care (01) | DRG 768 ==
PROVIDERS: Admitting Provider Obstetrics & Gynecology; PCP Nurse Practitioner Family; Visit Provider Obstetrics & Gynecology
PROC: 10E0XZZ Delivery of Products of Conception, External Approach (ICD-10-PCS; CPT 59160; principal; 2025-09-23 11:45)
DX: O10.02 Pre-existing essential hypertension complicating childbirth (principal); Z37.0 Single live birth; O72.1 Other immediate postpartum hemorrhage; O71.3 Obstetric laceration of cervix; O24.410 Gestational diabetes mellitus in pregnancy, diet controlled; Z3A.38 38 weeks gestation of pregnancy; O70.1 Second degree perineal laceration during delivery; O43.893 Other placental disorders, third trimester; O99.284 Endocrine, nutritional and metabolic diseases complicating childbirth; E78.5 Hyperlipidemia, unspecified; Z28.39 Other underimmunization status
CPT/HCPCS: 59160; 57720; 36415; 80053; 80307; 86850; 86900; 86901; 90716; 85025; 88304; 88307; J0690; J1100; J2003; J2405; J2704; J3010; J3490